=== PATIENT | male | born 1950 | race Hispanic/Latino ===

== ENCOUNTER → 2019-03-18 | Outpatient (CLI) | payer OTHER ==
[~2019-03-18] MED LIST: BISA-72 PO; CHLO4TAB32 PO; CLON1TAB PO; DUTA.5 PO; ONDA4TAB9 PO; POLY500P30 MC; PROP10TA10 PO; ROSU5TAB PO; SAW160CA3 PO; SERT50TA PO; XALA2.5OS
== END | disposition home or self-care (01) ==
LOC: RAH 10:05
PROVIDERS: ATTEND Internal Medicine Gastroenterology
DX: K76.0 Fatty (change of) liver, not elsewhere classified (principal); Z90.49 Acquired absence of other specified parts of digestive tract
CPT/HCPCS: 76700

== ENCOUNTER 2020-02-28 12:46 | Emergency (ER) | payer OTHER ==
[~2020-02-28 12:46] MED LIST changes: +ONDA-104 PO; -ONDA4TAB9 PO
[2020-02-28 13:20] LABS: BASOPHILS % (AUTO) 0.3 % (0.0-5.0); EOSINOPHILS % (AUTO) 1.7 % (0.0-8.0); HEMATOCRIT 40.9 % (42-54); LYMPHOCYTES % (AUTO) 17.3 % (21.0-51.0); MEAN CORPUSCULAR HEMOGLOBIN 29.7 pg (27.0-33.0); MEAN CORPUSCULAR HGB CONC 31.8 g/dL (32.0-36.0); MEAN CORPUSCULAR VOLUME 93.4 fL (79-99); MONOCYTES % (AUTO) 6.7 % (3.0-13.0); NEUTROPHILS % (AUTO) 73.7 % (40.0-77.0); PLATELET COUNT (AUTO) 182 K/uL (130-400); RED BLOOD CELL COUNT(AUTO) 4.38 MIL/uL (4.50-6.20); WHITE BLOOD COUNT (AUTO) 6.5 K/uL (4.8-10.8)
[2020-02-28 13:34] LABS: POTASSIUM 3.8 mmol/L (3.5-5.1)
[2020-02-28 13:35] LABS: INR 0.93 (0.85-1.15); PARTIAL THROMBOPLASTIN TIME 27.3 SEC (26.3-35.5); PROTHROMBIN TIME 10.1 SEC (9.6-11.6)
[2020-02-28 13:39] LABS: ALBUMIN 3.7 g/dL (3.5-5.0); BILIRUBIN,TOTAL 0.4 mg/dL (0.2-1.0); TOTAL PROTEIN, SERUM 6.9 g/dL (6.0-8.3)
== END 2020-02-28 16:41 | disposition home or self-care (01) ==
LOC: EDH 12:46
DX: R00.2 Palpitations (principal); F41.9 Anxiety disorder, unspecified; F32.9 Major depressive disorder, single episode, unspecified; Z88.0 Allergy status to penicillin; Z88.6 Allergy status to analgesic agent
CPT/HCPCS: 36415; 71045; 80053; 82550; 84484; 85025; 85378; 85610; 85730; 93005

== ENCOUNTER 2022-03-08 05:37 | Day surgery (SDC) | payer OTHER, MEDICARE ==
[2022-03-04 15:26] LABS: BASOPHILS % (AUTO) 0.6 % (0.0-5.0); HEMATOCRIT 41.6 % (42-54); LYMPHOCYTES % (AUTO) 19.5 % (21.0-51.0); MEAN CORPUSCULAR HEMOGLOBIN 30.3 pg (27.0-33.0); MEAN CORPUSCULAR HGB CONC 31.7 g/dL (32.0-36.0); MEAN CORPUSCULAR VOLUME 95.6 fL (79-99); MONOCYTES % (AUTO) 8.2 % (3.0-13.0); NEUTROPHILS % (AUTO) 70.4 % (40.0-77.0); PLATELET COUNT (AUTO) 223 K/uL (130-400); RED BLOOD CELL COUNT(AUTO) 4.35 MIL/uL (4.50-6.20); RED CELL DISTRIBUTION WIDTH 13.1 % (11.0-15.5); WHITE BLOOD COUNT (AUTO) 8.7 K/uL (4.8-10.8)
[2022-03-04 15:28] LABS: APPEARANCE,URINE Clear (CLEAR); BILIRUBIN,URINE Negative (NEGATIVE); COLOR,URINE Yellow (YELLOW); GLUCOSE, URINE (UA) Negative (NEGATIVE); KETONES,URINE Negative (NEGATIVE); LEUKOCYTE ESTERASE ,URINE Negative (NEGATIVE); NITRATE,URINE Negative (NEGATIVE); OCCULT BLOOD,URINE Negative (NEGATIVE); PH,URINE 5.5 (5.0-8.0); PROTEIN,URINE Negative (NEGATIVE)
[2022-03-04 15:36] LABS: PROTHROMBIN TIME 10.9 SEC (9.6-11.6)
[2022-03-04 15:37] LABS: CREATININE 0.8 mg/dL (0.5-1.5); PARTIAL THROMBOPLASTIN TIME 26.2 SEC (26.3-35.5); POTASSIUM 3.9 mmol/L (3.5-5.1)
[2022-03-04 15:48] LABS: B-TYPE NATRIURETIC PEPTIDE 8 pg/mL (0-100)
[2022-03-07 11:30] VITALS: BP 127/61
[2022-03-08] VITALS (10 sets, daily range): BP systolic 116–146; BP diastolic 57–73
[~2022-03-08] VITALS: Ht 180.3 cm; Wt 94.7 kg
[~2022-03-08 05:37] MED LIST changes: +ACET-66 PO; -CHLO4TAB32 PO; +FLUT15.845 NS; +GUAI600T50 PO; +METF-444 PO; +OMEP40CA21 PO; -POLY500P30 MC; +POLY500P30 PO; -ROSU5TAB PO; -SAW160CA3 PO; +TAMS-1 PO
[2022-03-08] MEDS ORDERED: HEPARIN 10,000 UNIT/10ML (1,000 UNIT/ML) VIAL ONE (07:11)
[2022-03-08] MEDS ORDERED: NITROGLYCERIN 50MG VIAL ONE (07:11)
[2022-03-08] MEDS ORDERED: LIDOCAINE HCL 400MG/20ML VIAL ONE (07:11)
[2022-03-08] MEDS ORDERED: FENTANYL CITRATE PF 50 MCG/1 ML 2ML VIAL ONE (07:11)
[2022-03-08] MEDS ORDERED: MIDAZOLAM HCL 1 MG/ML 2ML VIAL ONE (07:11)
[2022-03-08] MEDS ORDERED: BIVALIRUDIN 250 MG/VIAL IV ONE (07:11)
[2022-03-08] MEDS ORDERED: IOHEXOL-350 50ML VIAL IV ONE (07:14)
[2022-03-08] MEDS ORDERED: IOHEXOL 350 MG/ML 100ML INFUS..BTL IV ONE (07:14)
[2022-03-08] MEDS ORDERED: 0.9%NACL 1000ML 1,000 ML IV SCH ×2 (08:00→08:30)
[2022-03-08] MEDS ORDERED: GLUCAGON 1MG KIT 1 MG ML IM PRN (08:30)
[2022-03-08] MEDS ORDERED: METOPROLOL TARTRATE 1 MG/ML 5ML VIAL IV PRN (08:30)
[2022-03-08] MEDS ORDERED: DEXTROSE 50%-WATER 50 ML DISP.SYRIN IV PRN (08:30)
[2022-03-08] MEDS ORDERED: NITROGLYCERIN 0.4 MG SL TAB SL PRN (08:30)
== END 2022-03-08 13:30 | disposition home or self-care (01) ==
LOC: DAH 05:37
PROVIDERS: ATTEND Internal Medicine Cardiovascular Disease
DX: R06.02 Shortness of breath (principal); R09.02 Hypoxemia; I20.8 Other forms of angina pectoris; I11.0 Hypertensive heart disease with heart failure; I50.32 Chronic diastolic (congestive) heart failure; E11.9 Type 2 diabetes mellitus without complications; E78.5 Hyperlipidemia, unspecified; E66.3 Overweight; K21.9 Gastro-esophageal reflux disease without esophagitis; N40.0 Benign prostatic hyperplasia without lower urinary tract symptoms; I48.0 Paroxysmal atrial fibrillation; Z87.891 Personal history of nicotine dependence; Z82.49 Family history of ischemic heart disease and other diseases of the circulatory system; Z88.8 Allergy status to other drugs, medicaments and biological substances; Z88.0 Allergy status to penicillin; Z68.28 Body mass index [BMI] 28.0-28.9, adult; Z79.82 Long term (current) use of aspirin; Z98.890 Other specified postprocedural states; Z79.899 Other long term (current) drug therapy; Z79.01 Long term (current) use of anticoagulants
CPT/HCPCS: 36415; 80048; 81003; 82948 ×2; 83880; 85025; 85610; 85730; 93460; A4215; A4216; A4221; A4222; A4223 ×3; A4606; A4663; C1760; C1894 ×3; J1644; J2250; J3490 ×2; Q9967 ×2; 99156; 99157; J0583; J3010

== ENCOUNTER → 2022-03-25 | Outpatient (CLI) | payer OTHER, MEDICARE | END | disposition home or self-care (01) | LOC: RAH 12:45 | PROVIDERS: ATTEND Internal Medicine Cardiovascular Disease | DX: M79.81 Nontraumatic hematoma of soft tissue (principal); M79.89 Other specified soft tissue disorders; I72.9 Aneurysm of unspecified site; E85.9 Amyloidosis, unspecified | CPT/HCPCS: 76882 ==

== ENCOUNTER 2022-04-15 22:11 | Emergency (ER) | payer OTHER, MEDICARE ==
[~2022-04-15] VITALS: Ht 182.9 cm; Wt 95.3 kg
[2022-04-15] MEDS ORDERED: ADENOSINE 6MG VIAL IV ONE ×2 (22:30)
[2022-04-15 22:33] LABS: BASOPHILS % (AUTO) 0.3 % (0.0-5.0); EOSINOPHILS % (AUTO) 1.5 % (0.0-8.0); HEMATOCRIT 45.3 % (42-54); LYMPHOCYTES % (AUTO) 18.5 % (21.0-51.0); MEAN CORPUSCULAR HEMOGLOBIN 30.3 pg (27.0-33.0); MEAN CORPUSCULAR VOLUME 94.6 fL (79-99); MONOCYTES % (AUTO) 6.8 % (3.0-13.0); NEUTROPHILS % (AUTO) 72.6 % (40.0-77.0); PLATELET COUNT (AUTO) 227 K/uL (130-400); RED BLOOD CELL COUNT(AUTO) 4.79 MIL/uL (4.50-6.20); RED CELL DISTRIBUTION WIDTH 13.1 % (11.0-15.5); WHITE BLOOD COUNT (AUTO) 8.9 K/uL (4.8-10.8)
[2022-04-15 22:45] LABS: CREATININE 1.1 mg/dL (0.5-1.5); POTASSIUM 4.1 mmol/L (3.5-5.1)
[2022-04-15 22:51] LABS: ALBUMIN 4.2 g/dL (3.5-5.0); BILIRUBIN,TOTAL 0.4 mg/dL (0.2-1.0); TOTAL PROTEIN, SERUM 8.1 g/dL (6.0-8.3)
[2022-04-15 23:30] VITALS: BP 124/79
== END 2022-04-15 23:53 | disposition home or self-care (01) ==
LOC: EDH 22:11
DX: I47.1 Supraventricular tachycardia (principal); E11.9 Type 2 diabetes mellitus without complications; F41.9 Anxiety disorder, unspecified; M19.90 Unspecified osteoarthritis, unspecified site; Z88.0 Allergy status to penicillin; Z88.1 Allergy status to other antibiotic agents; Z88.5 Allergy status to narcotic agent; Z88.8 Allergy status to other drugs, medicaments and biological substances; Z79.899 Other long term (current) drug therapy; Z90.49 Acquired absence of other specified parts of digestive tract
CPT/HCPCS: 36415; 71045; 80053; 84484; 85025; 93005 ×2; 96374; 99285; J0153

== ENCOUNTER 2022-05-10 02:11 | Emergency (ER) | payer OTHER, MEDICARE ==
[~2022-05-10] VITALS: Ht 182.9 cm; Wt 96.2 kg
[2022-05-10] MEDS ORDERED: ACETAMINOPHEN 650 MG/20.3 ML UDCUP PEG ONE (02:30)
[2022-05-10] MEDS ORDERED: ACETAMINOPHEN 650 MG/20.3 ML UDCUP ONE (02:35)
[2022-05-10 02:56] LABS: INFLUENZA TYPE A NEGATIVE FOR TYPE A (NEG); INFLUENZA TYPE B NEGATIVE FOR TYPE B (NEG)
[2022-05-10] MEDS ORDERED: NYST5ORA7 PO (03:11)
[2022-05-10 04:11] VITALS: BP 118/60
== END 2022-05-10 04:17 | disposition home or self-care (01) ==
LOC: EDH 02:11
DX: U07.1 COVID-19 (principal); B37.9 Candidiasis, unspecified; F41.9 Anxiety disorder, unspecified; J44.9 Chronic obstructive pulmonary disease, unspecified; F32.A Depression, unspecified; E11.9 Type 2 diabetes mellitus without complications; K21.9 Gastro-esophageal reflux disease without esophagitis; E78.00 Pure hypercholesterolemia, unspecified; Z88.0 Allergy status to penicillin; Z88.8 Allergy status to other drugs, medicaments and biological substances; Z88.5 Allergy status to narcotic agent; Z88.1 Allergy status to other antibiotic agents; Z79.84 Long term (current) use of oral hypoglycemic drugs; Z79.899 Other long term (current) drug therapy; Z90.89 Acquired absence of other organs; Z90.49 Acquired absence of other specified parts of digestive tract
CPT/HCPCS: 99283; 87635; 87880; 87804 ×2; C9803

== ENCOUNTER → 2022-10-10 | Outpatient (CLI) | payer OTHER, MEDICARE ==
[~2022-10-10] MED LIST changes: +NYST5ORA7 PO
== END | disposition home or self-care (01) ==
LOC: RAH 08:09
PROVIDERS: ATTEND Internal Medicine Cardiovascular Disease
DX: R16.2 Hepatomegaly with splenomegaly, not elsewhere classified (principal)
CPT/HCPCS: 76700

== ENCOUNTER 2022-11-23 17:55 | Emergency (ER) | payer OTHER, MEDICARE ==
[~2022-11-23] VITALS: Ht 182.9 cm; Wt 95.3 kg
[2022-11-23] MEDS ORDERED: 0.9%NACL 1000ML 1,000 ML IV SCH (18:30)
[2022-11-23] MEDS ORDERED: ADENOSINE 6MG VIAL IV ONE ×2 (18:43→19:00)
[2022-11-23 18:45] LABS: BASOPHILS % (AUTO) 0.7 % (0.0-5.0); EOSINOPHILS % (AUTO) 1.9 % (0.0-8.0); HEMATOCRIT 39.7 % (42-54); LYMPHOCYTES % (AUTO) 15.8 % (21.0-51.0); MEAN CORPUSCULAR HEMOGLOBIN 30.3 pg (27.0-33.0); MEAN CORPUSCULAR HGB CONC 32.5 g/dL (32.0-36.0); MEAN CORPUSCULAR VOLUME 93.2 fL (79-99); MONOCYTES % (AUTO) 6.7 % (3.0-13.0); NEUTROPHILS % (AUTO) 74.4 % (40.0-77.0); PLATELET COUNT (AUTO) 243 K/uL (130-400); RED BLOOD CELL COUNT(AUTO) 4.26 MIL/uL (4.50-6.20); RED CELL DISTRIBUTION WIDTH 13.6 % (11.0-15.5); WHITE BLOOD COUNT (AUTO) 10.1 K/uL (4.8-10.8)
[2022-11-23 18:57] LABS: CREATININE 0.9 mg/dL (0.5-1.5); POTASSIUM 4.7 mmol/L (3.5-5.1)
[2022-11-23 19:02] LABS: ALBUMIN 3.7 g/dL (3.5-5.0); TOTAL PROTEIN, SERUM 7.3 g/dL (6.0-8.3)
[2022-11-23 20:47] VITALS: BP 122/70
== END 2022-11-23 20:59 | disposition home or self-care (01) ==
LOC: EDH 17:55
DX: I47.1 Supraventricular tachycardia (principal); E11.9 Type 2 diabetes mellitus without complications; E78.00 Pure hypercholesterolemia, unspecified; F41.9 Anxiety disorder, unspecified; I48.91 Unspecified atrial fibrillation; K21.9 Gastro-esophageal reflux disease without esophagitis; F32.9 Major depressive disorder, single episode, unspecified; I11.9 Hypertensive heart disease without heart failure; J44.9 Chronic obstructive pulmonary disease, unspecified; Z79.899 Other long term (current) drug therapy; Z86.79 Personal history of other diseases of the circulatory system; Z88.0 Allergy status to penicillin; Z88.1 Allergy status to other antibiotic agents; Z88.5 Allergy status to narcotic agent; Z88.8 Allergy status to other drugs, medicaments and biological substances; Z90.49 Acquired absence of other specified parts of digestive tract
CPT/HCPCS: 84484; 80053; 85025; 36415; 71045; 96374; 99291; 96361; 93005 ×2; J0153; J7030

== ENCOUNTER → 2022-11-25 | Outpatient (CLI) | payer OTHER, MEDICARE ==
[2022-11-25 15:28] LABS: INR 0.94 (0.85-1.15); PROTHROMBIN TIME 10.3 SEC (9.6-11.6)
[2022-11-25 15:30] LABS: PARTIAL THROMBOPLASTIN TIME 28.5 SEC (26.3-35.5)
[2022-11-25 15:37] LABS: ALBUMIN 3.7 g/dL (3.5-5.0); CREATININE 0.8 mg/dL (0.5-1.5); POTASSIUM 4.2 mmol/L (3.5-5.1); TOTAL PROTEIN, SERUM 7.5 g/dL (6.0-8.3)
== END | disposition home or self-care (01) ==
LOC: LAB 13:16
PROVIDERS: ATTEND Internal Medicine Cardiovascular Disease
DX: E78.5 Hyperlipidemia, unspecified (principal); R06.02 Shortness of breath
CPT/HCPCS: 36415; 80053; 84156; 84166; 85610; 85730; 86325

== ENCOUNTER → 2022-12-23 | Outpatient (CLI) | payer OTHER, MEDICARE | END | disposition home or self-care (01) | LOC: RAH 10:00 | DX: M47.816 Spondylosis without myelopathy or radiculopathy, lumbar region (principal); M47.812 Spondylosis without myelopathy or radiculopathy, cervical region; M25.78 Osteophyte, vertebrae; M48.02 Spinal stenosis, cervical region | CPT/HCPCS: 72040; 72100 ==

== ENCOUNTER 2023-01-11 01:08 | Emergency (ER) | payer OTHER, MEDICARE ==
[~2023-01-11] VITALS: Ht 182.9 cm; Wt 95.3 kg
[2023-01-11] MEDS ORDERED: ADENOSINE 6MG VIAL IV ONE (01:13)
[2023-01-11 01:26] LABS: BASOPHILS % (AUTO) 0.5 % (0.0-5.0); EOSINOPHILS % (AUTO) 1.4 % (0.0-8.0); HEMATOCRIT 43.2 % (42-54); MEAN CORPUSCULAR HEMOGLOBIN 30.4 pg (27.0-33.0); MEAN CORPUSCULAR HGB CONC 31.7 g/dL (32.0-36.0); MONOCYTES % (AUTO) 5.7 % (3.0-13.0); NEUTROPHILS % (AUTO) 68.9 % (40.0-77.0); PLATELET COUNT (AUTO) 226 K/uL (130-400); RED CELL DISTRIBUTION WIDTH 13.4 % (11.0-15.5); WHITE BLOOD COUNT (AUTO) 8.8 K/uL (4.8-10.8)
[2023-01-11 01:36] LABS: CREATININE 1.1 mg/dL (0.5-1.5); POTASSIUM 4.4 mmol/L (3.5-5.1)
[2023-01-11 01:41] LABS: ALBUMIN 4.3 g/dL (3.5-5.0); MAGNESIUM 2.3 mg/dL (1.80-2.40); TOTAL PROTEIN, SERUM 8.2 g/dL (6.0-8.3)
[2023-01-11 02:17] LABS: B-TYPE NATRIURETIC PEPTIDE 19 pg/mL (0-100)
[2023-01-11 02:32] VITALS: BP 132/78
[2023-01-11 02:57] LABS: APPEARANCE,URINE CLEAR (CLEAR); BILIRUBIN,URINE NEGATIVE (NEGATIVE); COLOR,URINE COLORLESS (YELLOW); GLUCOSE, URINE (UA) NEGATIVE (NEGATIVE); KETONES,URINE NEGATIVE (NEGATIVE); LEUKOCYTE ESTERASE ,URINE NEGATIVE Leu/uL (NEGATIVE); NITRATE,URINE NEGATIVE (NEGATIVE); OCCULT BLOOD,URINE NEGATIVE (NEGATIVE); PH,URINE 7.5 (5.0-8.0); PROTEIN,URINE NEGATIVE (NEGATIVE); UROBILINOGEN,URINE 0.2 mg/dL (0.2-1.0)
== END 2023-01-11 03:10 | disposition home or self-care (01) ==
LOC: EDH 01:08
DX: I47.1 Supraventricular tachycardia (principal); E11.9 Type 2 diabetes mellitus without complications; I10 Essential (primary) hypertension; Z79.899 Other long term (current) drug therapy; Z88.0 Allergy status to penicillin; Z88.1 Allergy status to other antibiotic agents; Z88.5 Allergy status to narcotic agent; Z88.8 Allergy status to other drugs, medicaments and biological substances; Z90.49 Acquired absence of other specified parts of digestive tract
CPT/HCPCS: 99291; 96374; 83735; 84484; 80053; 83880; 85025; 81003; 36415; 71045; 93005; J0153

== ENCOUNTER → 2023-04-27 | Outpatient (CLI) | payer OTHER, MEDICARE ==
[2023-04-27 12:55] LABS: CREATININE 0.8 mg/dL (0.5-1.5); MAGNESIUM 2.1 mg/dL (1.80-2.40)
== END | disposition home or self-care (01) ==
LOC: LAB 10:36
PROVIDERS: ATTEND Internal Medicine Cardiovascular Disease
DX: I10 Essential (primary) hypertension (principal); E78.5 Hyperlipidemia, unspecified
CPT/HCPCS: 36415; 80048; 83735; 83880

== ENCOUNTER → 2023-05-29 | Outpatient (CLI) | payer OTHER, MEDICARE | END | disposition home or self-care (01) | LOC: SHCH 12:36 | PROVIDERS: ATTEND Internal Medicine Cardiovascular Disease | DX: I48.0 Paroxysmal atrial fibrillation (principal) | CPT/HCPCS: 93306 ==

== ENCOUNTER → 2023-06-01 | Outpatient (CLI) | payer OTHER, MEDICARE ==
[2023-06-01 16:36] LABS: CREATININE 0.9 mg/dL (0.5-1.5); POTASSIUM 3.9 mmol/L (3.5-5.1)
== END | disposition home or self-care (01) ==
LOC: LAB 12:29
PROVIDERS: ATTEND Internal Medicine Cardiovascular Disease
DX: I71.40 Abdominal aortic aneurysm, without rupture, unspecified (principal)
CPT/HCPCS: 36415; 80048

== ENCOUNTER → 2023-06-15 | Outpatient (CLI) | payer OTHER, MEDICARE ==
[~2023-06-15] MED LIST changes: +IOHEXOL 350 MG/ML 100ML INFUS..BTL IV ONE
== END | disposition home or self-care (01) ==
LOC: RAH 09:38
PROVIDERS: ATTEND Internal Medicine Cardiovascular Disease
DX: I71.40 Abdominal aortic aneurysm, without rupture, unspecified (principal); K57.30 Diverticulosis of large intestine without perforation or abscess without bleeding; Z90.49 Acquired absence of other specified parts of digestive tract
CPT/HCPCS: 74174; 71275; Q9967

== ENCOUNTER → 2023-08-09 | Outpatient (CLI) | payer OTHER, MEDICARE ==
[~2023-08-09] MED LIST changes: -IOHEXOL 350 MG/ML 100ML INFUS..BTL IV ONE
== END | disposition home or self-care (01) ==
LOC: RAH 12:54
PROVIDERS: ATTEND Internal Medicine
DX: S22.009S Unspecified fracture of unspecified thoracic vertebra, sequela (principal); M46.92 Unspecified inflammatory spondylopathy, cervical region; M47.814 Spondylosis without myelopathy or radiculopathy, thoracic region; G96.191 Perineural cyst; M51.34 Other intervertebral disc degeneration, thoracic region; M47.816 Spondylosis without myelopathy or radiculopathy, lumbar region; M48.061 Spinal stenosis, lumbar region without neurogenic claudication; M47.812 Spondylosis without myelopathy or radiculopathy, cervical region; M50.323 Other cervical disc degeneration at C6-C7 level; M48.02 Spinal stenosis, cervical region
CPT/HCPCS: 72141; 72146; 72148

== ENCOUNTER → 2024-01-06 | Outpatient (CLI) | payer OTHER, MEDICARE ==
[~2024-01-06] MED LIST changes: -DUTA.5 PO; +[UNRECOGNIZED DRUG - CODE] PO
== END | disposition home or self-care (01) ==
LOC: SHCH 14:37
PROVIDERS: ATTEND Internal Medicine Cardiovascular Disease
DX: R06.00 Dyspnea, unspecified (principal)
CPT/HCPCS: 93306

== ENCOUNTER 2024-01-20 07:00 | Emergency (ER) | payer OTHER, MEDICARE ==
[~2024-01-20] VITALS: Ht 182.9 cm; Wt 95.3 kg
[2024-01-20 07:30] LABS: BASOPHILS # (AUTO) 0.05 K/uL (0.00-0.20); BASOPHILS % (AUTO) 0.7 % (0.0-5.0); EOSINOPHILS # (AUTO) 0.13 K/uL (0.00-0.70); EOSINOPHILS % (AUTO) 1.9 % (0.0-8.0); HEMATOCRIT 40.7 % (42-54); IMMATURE GRANULOCYTE ABSOLUTE 0.01 K/uL (0-1); LYMPHOCYTES # (AUTO) 2.4 K/uL (1.0-4.8); LYMPHOCYTES % (AUTO) 34.4 % (21.0-51.0); MEAN CORPUSCULAR HEMOGLOBIN 31.5 pg (27.0-33.0); MEAN CORPUSCULAR HGB CONC 32.4 g/dL (32.0-36.0); MEAN CORPUSCULAR VOLUME 97.1 fL (79-99); MONOCYTES # (AUTO) 0.5 K/uL (0.1-1.0); MONOCYTES % (AUTO) 6.8 % (3.0-13.0); NEUTROPHILS # (AUTO) 3.9 K/uL (1.8-7.7); NEUTROPHILS % (AUTO) 56.1 % (40.0-77.0); PLATELET COUNT (AUTO) 234 K/uL (130-400); RED BLOOD CELL COUNT(AUTO) 4.19 MIL/uL (4.50-6.20); RED CELL DISTRIBUTION WIDTH 13.6 % (11.0-15.5)
[2024-01-20] MEDS: 0.9%NACL 1000ML 1,000 ML IV SCH (07:30)
[2024-01-20] MEDS: ADENOSINE 6MG VIAL IV ONE ×2 (07:36→09:46)
[2024-01-20 07:39] LABS: INR <= 0.93 (0.85-1.15); PROTHROMBIN TIME 10.3 SEC (9.6-11.6)
[2024-01-20 07:40] LABS: PARTIAL THROMBOPLASTIN TIME 27.3 SEC (26.3-35.5)
[2024-01-20 07:58] LABS: B-TYPE NATRIURETIC PEPTIDE 28 pg/mL (0-100)
[2024-01-20 08:07] LABS: ALBUMIN 3.5 g/dL (3.5-5.0); BILIRUBIN,TOTAL 0.5 mg/dL (0.2-1.0); CREATININE 0.9 mg/dL (0.5-1.3); MAGNESIUM 1.9 mg/dL (1.80-2.40); POTASSIUM 3.8 mmol/L (3.5-5.1); TOTAL PROTEIN, SERUM 7.8 g/dL (6.0-8.3)
[2024-01-20] MEDS: 0.9% NACL 500ML IV.SOLN 500 ML IV ONE (08:35)
[2024-01-20] MEDS: METOPROLOL TARTRATE 1 MG/ML 5ML VIAL IV ONE (08:35)
[2024-01-20] MEDS: METOPROLOL SUCCINATE 25 MG TAB.SR.24H PO ONE (11:26)
[2024-01-20 12:00] VITALS: BP 109/66; PULSE 76; RESP 19; O2SAT 97
== END 2024-01-20 13:00 | disposition home or self-care (01) ==
LOC: EDH 07:00
DX: I47.10 Supraventricular tachycardia, unspecified (principal); Z79.899 Other long term (current) drug therapy; Z88.0 Allergy status to penicillin; Z88.1 Allergy status to other antibiotic agents; Z88.5 Allergy status to narcotic agent; Z88.8 Allergy status to other drugs, medicaments and biological substances
CPT/HCPCS: 99285; 96374; 71045; 96375; 82550; 83735; 84484; 80053; 83880; 85025; 85610; 85730; 36415; 96376; J0153 ×2; J3490; J7030

== ENCOUNTER → 2024-02-21 | Outpatient (CLI) | payer OTHER, MEDICARE ==
[~2024-02-21] MED LIST changes: -CLON1TAB PO; +CLON1TAB2 PO; +DUTA.5 PO; -[UNRECOGNIZED DRUG - CODE] PO
== END | disposition home or self-care (01) ==
LOC: RESP 12:59
PROVIDERS: ATTEND Internal Medicine Cardiovascular Disease
DX: R06.00 Dyspnea, unspecified (principal); R06.02 Shortness of breath
CPT/HCPCS: 94060

== ENCOUNTER 2024-07-06 10:34 | Emergency (ER) | payer OTHER, MEDICARE ==
[~2024-07-06] VITALS: Ht 185.4 cm; Wt 93.4 kg
[2024-07-06 11:33] LABS: BASOPHILS # (AUTO) 0.03 K/uL (0.00-0.20); BASOPHILS % (AUTO) 0.5 % (0.0-5.0); EOSINOPHILS # (AUTO) 0.12 K/uL (0.00-0.70); EOSINOPHILS % (AUTO) 2.1 % (0.0-8.0); HEMATOCRIT 38.3 % (42-54); IMMATURE GRANULOCYTE ABSOLUTE 0.01 K/uL (0-1); LYMPHOCYTES % (AUTO) 17.8 % (21.0-51.0); MEAN CORPUSCULAR HEMOGLOBIN 31.4 pg (27.0-33.0); MEAN CORPUSCULAR HGB CONC 32.4 g/dL (32.0-36.0); MONOCYTES # (AUTO) 0.4 K/uL (0.1-1.0); MONOCYTES % (AUTO) 7.2 % (3.0-13.0); NEUTROPHILS # (AUTO) 4.1 K/uL (1.8-7.7); NEUTROPHILS % (AUTO) 72.2 % (40.0-77.0); PLATELET COUNT (AUTO) 205 K/uL (130-400); RED BLOOD CELL COUNT(AUTO) 3.95 MIL/uL (4.50-6.20); RED CELL DISTRIBUTION WIDTH 13.3 % (11.0-15.5); WHITE BLOOD COUNT (AUTO) 5.7 K/uL (4.8-10.8)
[2024-07-06 11:53] LABS: ALBUMIN 3.4 g/dL (3.5-5.0); BILIRUBIN,TOTAL 0.5 mg/dL (0.2-1.0); POTASSIUM 3.8 mmol/L (3.5-5.1); TOTAL PROTEIN, SERUM 7.2 g/dL (6.0-8.3)
[2024-07-06 12:52] LABS: APPEARANCE,URINE CLEAR (CLEAR); BILIRUBIN,URINE NEGATIVE (NEGATIVE); COLOR,URINE YELLOW (YELLOW); GLUCOSE, URINE (UA) NEGATIVE (NEGATIVE); KETONES,URINE NEGATIVE (NEGATIVE); LEUKOCYTE ESTERASE ,URINE NEGATIVE Leu/uL (NEGATIVE); NITRATE,URINE NEGATIVE (NEGATIVE); OCCULT BLOOD,URINE NEGATIVE (NEGATIVE); PH,URINE 5.5 (5.0-8.0); PROTEIN,URINE NEGATIVE (NEGATIVE)
[2024-07-06 13:04] LABS: ADD UA MICROSCOPIC NO
[2024-07-06 16:09] VITALS: BP 118/68; PULSE 80; RESP 18; TEMP 97.9; O2SAT 97
== END 2024-07-06 16:22 | disposition home or self-care (01) ==
LOC: EDH 10:34
DX: I47.10 Supraventricular tachycardia, unspecified (principal); E85.4 Organ-limited amyloidosis; E11.9 Type 2 diabetes mellitus without complications; Z79.899 Other long term (current) drug therapy; Z88.0 Allergy status to penicillin; Z88.1 Allergy status to other antibiotic agents; Z88.5 Allergy status to narcotic agent; Z88.8 Allergy status to other drugs, medicaments and biological substances
CPT/HCPCS: 36415; 71045; 80053; 81003; 84484; 85025; 93005

== ENCOUNTER → 2024-08-13 | Outpatient (CLI) | payer OTHER, MEDICARE | END | disposition home or self-care (01) | LOC: RAH 13:11 | PROVIDERS: ATTEND Internal Medicine Critical Care Medicine | DX: J32.0 Chronic maxillary sinusitis (principal); J34.2 Deviated nasal septum | CPT/HCPCS: 70486 ==

== ENCOUNTER → 2024-10-25 | Outpatient (CLI) | payer OTHER, MEDICARE ==
[~2024-10-25] MED LIST changes: +NYST100033 PO; -NYST5ORA7 PO
--- NOTE | 2024-10-25 15:01 | HMCIMG ---
MRI OF THE CERVICAL SPINE WITHOUT GADOLINIUM Technique: Sagittal T1 and T2 FSE, Sagittal STIR and Sagittal proton density images were completed through the cervical spine. Axial T1, T2 and proton density images were also acquired. FINDINGS: There is straightening of the spine consistent with spasm. There are spondylitic changes. No fractures or dislocations are identified. Vertebral body height and disc height is preserved at all levels. The bone marrow signal is normal for age. The spinal canal contents are preserved. The paraspinal muscles and other tissues show no significant abnormalities. Evaluation of the cervical spine by level: C1-C2: There is no spinal canal stenosis. No disc protrusions or extrusions are seen. There is no neural foraminal stenosis, impingement, or narrowing. C2-C3: There is no spinal canal stenosis. No disc protrusions or extrusions are seen. There is no neural foraminal stenosis, impingement, or narrowing. C3-C4: There is no spinal canal stenosis. No disc protrusions or extrusions are seen. There is no neural foraminal stenosis, impingement, or narrowing. C4-C5: There is a central zone disc protrusion causing spinal canal stenosis without cord compression. There is also bilateral neural foraminal narrowing and nerve root impingement. C5-C6: There is a central zone disc protrusion causing spinal canal stenosis without cord compression. There is also bilateral neural foraminal narrowing and nerve root impingement. C6-C7: There is a central zone disc protrusion causing spinal canal stenosis without cord compression. There is also bilateral neural foraminal narrowing and nerve root impingement. C7-T1: There is no spinal canal stenosis. No disc protrusions or extrusions are seen. There is no neural foraminal stenosis, impingement, or narrowing. Impression: Multilevel disc protrusions with neural foraminal narrowing and nerve root impingement. Cervical spasm.
== END | disposition home or self-care (01) ==
LOC: RAH 14:09
PROVIDERS: ATTEND Clinical Nurse Specialist Family Health
DX: M47.812 Spondylosis without myelopathy or radiculopathy, cervical region (principal); M48.02 Spinal stenosis, cervical region; M46.92 Unspecified inflammatory spondylopathy, cervical region; M47.814 Spondylosis without myelopathy or radiculopathy, thoracic region; M54.50 Low back pain, unspecified
CPT/HCPCS: 72141

== ENCOUNTER 2024-10-27 09:09 | Observation (INO) | payer OTHER, MEDICARE ==
[~2024-10-27] VITALS: Ht 180.3 cm; Wt 90.2 kg
--- NOTE | 2024-10-27 09:16 | NUR ---
PT JUST NOW PLACED IN MY ED BED 19 BY [facility]
[2024-10-27 09:36] LABS: BASOPHILS # (AUTO) 0.03 K/uL (0.00-0.20); BASOPHILS % (AUTO) 0.4 % (0.0-5.0); EOSINOPHILS # (AUTO) 0.05 K/uL (0.00-0.70); EOSINOPHILS % (AUTO) 0.7 % (0.0-8.0); HEMATOCRIT 36.8 % (42-54); IMMATURE GRANULOCYTE ABSOLUTE 0.02 K/uL (0-1); LYMPHOCYTES % (AUTO) 15.4 % (21.0-51.0); MEAN CORPUSCULAR HGB CONC 32.6 g/dL (32.0-36.0); MEAN CORPUSCULAR VOLUME 98.1 fL (79-99); MONOCYTES # (AUTO) 0.4 K/uL (0.1-1.0); MONOCYTES % (AUTO) 5.8 % (3.0-13.0); NEUTROPHILS # (AUTO) 5.2 K/uL (1.8-7.7); NEUTROPHILS % (AUTO) 77.4 % (40.0-77.0); PLATELET COUNT (AUTO) 149 K/uL (130-400); RED BLOOD CELL COUNT(AUTO) 3.75 MIL/uL (4.50-6.20); RED CELL DISTRIBUTION WIDTH 13.7 % (11.0-15.5); WHITE BLOOD COUNT (AUTO) 6.7 K/uL (4.8-10.8)
[2024-10-27 10:00] LABS: INR 0.95 (0.85-1.15); PROTHROMBIN TIME 10.7 SEC (9.6-11.6)
[2024-10-27 10:01] LABS: PARTIAL THROMBOPLASTIN TIME 27.6 SEC (26.3-35.5)
[2024-10-27 10:05] LABS: POTASSIUM 3.9 mmol/L (3.5-5.1)
--- NOTE | 2024-10-27 10:29 | HMCIMG ---
INDICATION: Shortness of breath TECHNIQUE: CHEST 1VW COMPARISON: 07/06/2024 FINDINGS/IMPRESSION: Prominent bilateral interstitial markings which may represent bronchitis or vascular congestion in the proper clinical setting. Cardiac silhouette is within normal limits. Mild degenerative changes of the spine. The visualized upper abdomen appears unremarkable.
[2024-10-27 10:57] LABS: B-TYPE NATRIURETIC PEPTIDE 46 pg/mL (0-100)
--- NOTE | 2024-10-27 11:51 | NUR ---
PT OOB TO BR. WILL COLLECT URINE SAMPLE. PENDING 2ND TROP LEVEL
--- NOTE | 2024-10-27 12:00 | NUR ---
PER PT, HE DID BECOME A LITTLE DIZZY INITIALLY WHEN HE GOT OOB TO WALK TO THE BATHROOM. HE DOES HAVE HOSPITAL NON SLIP SOCKS ON. UPON RETURNING, HE STATED HE WAS JUST FINE
--- NOTE | 2024-10-27 13:37 | NUR ---
NO PENDING DISPOSITION
--- NOTE | 2024-10-27 13:45 | ERN ---
General Chief Complaint: Palpitations Stated Complaint: PALPITATIONS Time Seen by MD: 09:16 History of Present Illness Initial Comments 74-year-old male came in for palpitation. As per patient patient has a history of cardiac amyloidosis in 12nd two SVT and had a recent episode three weeks ago. Patient is a was denies chest pain shortness for breath. Patient has no other concerns Allergies: Coded Allergies: Penicillins (Verified Allergy, Unknown, 03/02/14) albuterol (Unverified Allergy, Unknown, 07/06/21) cefdinir (Unverified Allergy, Unknown, 07/06/21) codeine (Unverified Allergy, Unknown, 07/06/21) lisinopril (Unverified Allergy, Unknown, 07/06/21) tramadol (Unverified Allergy, Unknown, 07/06/21) Home Meds Active Scripts Nystatin (Nystatin) 100,000 Unit/1 Ml Oral.susp, 572824 UNIT PO TID, #7 ML Prov:ROHAN GONZALES MD 05/10/22 Reported Medications Metformin HCl (Metformin HCl) 500 Mg Tablet, 500 MG PO HS, TAB 03/07/22 Fluticasone Propionate (Fluticasone Propionate) 15.8 Ml [place].susp, 1 SPRAY NS DAILY 03/07/22 Acetaminophen (Acetaminophen) 500 Mg Tablet, 1000 MG PO DAILY, TAB 03/07/22 Guaifenesin (Mucinex) 600 Mg Tablet.er, 600 MG PO HS, TAB 03/07/22 Tamsulosin HCl (Flomax) 0.4 Mg Cap.er.24h, 0.4 MG PO HS, CAPSULE.DR 03/07/22 Omeprazole (Omeprazole) 40 Mg Capsule.dr, 40 MG PO DAILY, CAP 03/07/22 Sertraline HCl (Zoloft) 50 Mg Tablet, 50 MG PO BID, TAB 01/30/17 Clonazepam (Klonopin) 1 Mg Tablet, 1 MG PO TID, TAB 01/30/17 Latanoprost (Xalatan 0.005% Ophth Soln) 20 Drop/Ml Opsol, 1 DROP .AD HS, DROP 01/30/17 Bisacodyl (Dulcolax) 5 Mg Tablet.dr, 5 MG PO HS, TAB 01/30/17 Ondansetron HCl (Ondansetron HCl) 4 Mg Tablet, 4 MG PO AD PRN for NAUSEA, TAB 01/30/17 Polyethylene Glycol 8000 (Polyethylene Glycol) 500 Gm Powder, 17 GM PO DAILY PRN for CONSTIPATION, APPL 01/30/17 Propranolol HCl (Propranolol HCl) 10 Mg Tablet, 5 MG PO DAILY PRN for IF SBP GREATER THAN 140, TAB 01/30/17 Dutasteride (Avodart) 0.5 Mg Cap, 0.5 MG PO HS, CAP 01/30/17 Past Medical History Past Medical History: Diabetes-Type II, High Cholesterol, Heart Disease, Hype rtension, Other Medical History Other: CARDIAC AMLODOYSIS Past Surgical History: Appendectomy, Cholecystectomy, Other Surgical History Other: PINS IN ELBOW Social History Social History: Negative, Lives with family, Other ROS Dictation CONSTITUTIONAL: Negative except for HPI HEAD/FACE: Negative except for HPI EENT: Negative except for HPI RESPIRATORY: Negative except for HPI GASTROINTESTINAL/ABDOMINAL: Negative except for HPI GENITOURINARY: Negative except for HPI MUSCULOSKELETAL: Negative except for HPI INTEGUMENTARY: Negative except for HPI NEUROLOGICAL/PSYCH: Negative except for HPI HEMATOLOGIC/LYMPHATIC: Negative except for HPI All Systems Negative, Except as noted above. 13 point review of systems assessed and all negative except for above. Physical Exam Physical Exam Dictation Vital Signs reviewed General Appearance: Alert, oriented x 3, no acute distress, well developed, nourished. Head and Face: non-traumatic. Eyes: PERRL, pink conjunctivas, eyelid no trauma, anterior chamber with arcus senilis. Ears: Pinnas intact and no signs of trauma or erythema ear canals clear and no discharge TM no erythema Nose: No discharge, no bleeding. Oropharynx: Mouth normal, tongue pink, pharynx clear,no erythema, tonsils no exudates, no abscesses noted, mucous membrane moist Neck: Supple, non-tender, no thyromegaly, no masses, no JVD, no bruits Breast:Deferred Chest:No tenderness, no crepitus, no paradoxical movement, no retractions Lungs:Clear, well-ventilated, symmetric, no rales, no wheezing, no rhonchi, no stridor, good breath sounds bilaterally Heart: Regular rate, regular rhythm, no murmur, no gallops Vascular: no peripheral edema, Abdomen: Soft, positive bowel sounds, nondistended, no guarding, nontender, no rebound, no masses no hepatomegaly, no splenomegaly, no Pete's sign, no hernias. Rectal: Deferred Genital: Deferred Neurological: Normal speech, motor function intact, sensory function intact Musculoskeletal: Neck nontender, full range of motion, back nontender, full range of motion, Extremities: nontender, full range of motion Skin: Color pink, dry, no turgor, no rash, no lacerations, no abrasions, no contusions. Lymphatic: Deferred Results Laboratory and Microbiology Lab and Micro Result Laboratory Tests Test 10/27/24 09:30 10/27/24 12:07 White Blood Count 6.7 K/uL (4.8-10.8) Red Blood Count 3.75 MIL/uL (4.50-6.20) L Hemoglobin 12.0 g/dL (14.0-18.0) L Hematocrit 36.8 % (42-54) L Mean Corpuscular Volume 98.1 fL (79-99) Mean Corpuscular Hemoglobin 32.0 pg (27.0-33.0) Mean Corpuscular Hemoglobin Concent 32.6 g/dL (32.0-36.0) Red Cell Distribution Width 13.7 % (11.0-15.5) Platelet Count 149 K/uL (130-400) Mean Platelet Volume 9.0 fL (7.5-10.5) Immature Granulocyte % (Auto) 0.3 % (0-1) Neutrophils (%) (Auto) 77.4 % (40.0-77.0) H Lymphocytes (%) (Auto) 15.4 % (21.0-51.0) L Monocytes (%) (Auto) 5.8 % (3.0-13.0) Eosinophils (%) (Auto) 0.7 % (0.0-8.0) Basophils (%) (Auto) 0.4 % (0.0-5.0) Neutrophils # (Auto) 5.2 K/uL (1.8-7.7) Lymphocytes # (Auto) 1.0 K/uL (1.0-4.8) Monocytes # (Auto) 0.4 K/uL (0.1-1.0) Eosinophils # (Auto) 0.05 K/uL (0.00-0.70) Basophils # (Auto) 0.03 K/uL (0.00-0.20) Absolute Immature Granulocyte (auto 0.02 K/uL (0-1) Nucleated Red Blood Cells 0.0 % (0.0-0.19) Prothrombin Time 10.7 SEC (9.6-11.6) Prothromb Time International Ratio 0.95 (0.85-1.15) Activated Partial Thromboplast Time 27.6 SEC (26.3-35.5) Sodium Level 146 mmol/L (136-145) H Potassium Level 3.9 mmol/L (3.5-5.1) Chloride Level 110 mmol/L (101-111) Carbon Dioxide Level 28 mmol/L (21-32) Blood Urea Nitrogen 15 mg/dL (7-18) Creatinine 1.0 mg/dL (0.5-1.3) Glomerular Filtration Rate Calc 78 mL/min (>90) Random Glucose 101 mg/dL (70-105) Total Calcium 8.6 mg/dL (8.5-10.1) Total Creatine Kinase 498 U/L (21-232) #*H Troponin I High Sensitivity 76 ng/L (4-75) *H 184 ng/L (4-75) *H B-Type Natriuretic Peptide 46 pg/mL (0-100) MDM MDM: Differential diagnosis: Rationale: Tests considered and ordered secondary to shared decision making include: Previous outside records reviewed: Old ER visits. Risk of complication and/or morbidity or mortality of patient management: None Medications-Per medication reconciliation Need for hospitalization: Patient does meet criteria for hospitalization. Need for emergency major/minor surgery: No There are no social concerns with this patient. Prescription drug management Prescriptions will include symptomatic care Patient's prior external medical records from other ER visits were reviewed by me as indicated. Prior testing and results from previous visits were reviewed. Prior tests were taken into account with medical decision making and resource utilization, independent historian/historians were used to obtain complete medical history. I independently interpreted the test that were performed, results were reviewed by me and considered findings on radiology if ordered. Medical management and examination interpretation discussions were had by me with other qualified healthcare professionals as indicated for the patient's care. ED Course Orders Procedure Category Date Status Time 12 Lead Ekg Tracing- EKG 10/27/24 Logged Technical 09:17 Cbc With Differential LAB 10/27/24 Complete 09:17 Basic Metabolic Panel LAB 10/27/24 Complete 09:17 Creatine Kinase, Total LAB 10/27/24 Complete 09:17 B-Type Natriuretic LAB 10/27/24 Complete Peptide 09:17 Pt And Ptt LAB 10/27/24 Complete 09:17 Troponin I High LAB 10/27/24 Complete Sensitivity 09:17 Chest 1vw RAD 10/27/24 Resulted 09:17 Troponin I High LAB 10/27/24 Complete Sensitivity 11:34 Vital Signs Date Time Temp Pulse Resp B/P (MAP) Pulse Ox O2 Delivery O2 Flow Rate FiO2 10/27/24 09:22 88 15 115/65 97 Room Air* 0 21 10/27/24 09:10 98.8 92 20 105/73 98 Nasal Cannula 0 DX & DISP Disposition: Inpatient Departure Impression: Primary Impression: Palpitations Additional Impression: Cardiac amyloidosis Condition: Stable Referrals: JOSEY RIZO MD (PCP) TARA CADENA MD Oct 27, 2024 13:45
--- NOTE | 2024-10-27 14:27 | HP ---
[facility] HISTORY AND PHYSICAL Date of Service: Oct 27, 2024 Time of Service: 14:27 HISTORY OF PRESENT ILLNESS: [ Date of service: 10/27/2024, patient was seen in ER room 19 74-year-old male with underlying history of cardiac amyloidosis, history of recurrent SVTs (3-4 episodes of SVT this year requiring ER evaluation), hyperlipidemia, type 2 diabetes mellitus, GERD, gastritis, anxiety, who presented to the ER for further evaluation of dizziness and palpitations. Patient states that close to 3:00 a.m. today, while he was ambulating to the restroom, he felt significantly lightheaded, dizzy and felt palpitations. Patient has had previous history of palpitations before and has history of SVT. Patient is followed by Dr. Flores and is being treated with Vyndamax for management of amyloidosis. Patient states that yesterday, while he was running his errands, he felt significant dyspnea on exertion with activity and felt tired and fatigued. Denies any fevers, chills, respiratory congestion, rhinorrhea. He feels that his exertional activity is limited due to his underlying cardiac condition. Patient called EMS who found patient to be in SVT with heart rate in the 150s, he received a dose of IV adenosine 6 mg and on presentation to [facility], he was noted to have normal sinus rhythm. Lab work significant for cardiac panel which was checked initially was noted to be elevated at 76 and 2nd troponin went to 184. ER requested patient be admitted and troponin to be trended. Consultation with Cardiology will be requested. We will obtain 2D echocardiogram and we will see how patient progresses. ] REVIEW OF SYSTEMS CONSTITUTIONAL: Asthenia, malaise NEUROLOGICAL: Denies headache, amaurosis fugax, motor weakness, sensory deficit, vertigo/spinning sensation, gait abnormalities, or tremors. ENT: No hearing loss, otalgia, otorrhea, rhinitis, rhinorrhea, hoarseness, or sore throat. CARDIOVASCULAR: Dyspnea on exertion, shortness of breath, palpitations PULMONARY: Denies any shortness of breath, cough, phlegm/sputum, hemoptysis, pleuritic chest pain. SLEEP: Denies morning headaches, daytime somnolence or napping. Denies difficulty falling asleep, staying asleep, waking from sleep. Denies knowledge of snoring. GASTROINTESTINAL: Denies any type of dysphagia to either liquids or solids. Denies nausea, vomiting, pyrosis, early satiety, abdominal pain, diarrhea, constipation, or changes in stool consistency or caliber. Denies coffee-ground emesis, hematemesis, hematochezia, or melanotic stools. GENITOURINARY: Denies frequency, urgency, nocturia, hematuria or incontinence (Storage/Irritative symptoms.) Low urinary stream, straining to void, urinary intermittency or hesitancy, splitting of the voiding stream, terminal dribbling. ENDOCRINOLOGIC: Denies polyuria, polydipsia, polyphagia or heat/cold intolerances. HEMATOLOGIC: Denies thrombophilia/previous clots, or coagulopathy/bleeding disorders. ONCOLOGIC: Denies personal history of malignancy. DERMATOLOGIC: Denies rashes or pruritus. PSYCHIATRIC: Denies any suicidal or homicidal ideation. Denies hallucinations. PAST MEDICAL HISTORY: [Recent history of cardiac amyloidosis, history of recurrent SVTs, BPH, type 2 diabetes mellitus, anxiety, depression, hyperlipidemia ] PAST SURGICAL HISTORY: [ Appendectomy, cholecystectomy, left elbow surgery ] PAST SOCIAL HISTORY: [ Denies active smoking or alcohol consumption, resides with at home ] FAMILY HISTORY: [Reports family history of heart disease ] Allergies: Penicillin, albuterol, cefdinir, codeine, lisinopril, tramadol Home medications: will be bringing list of home medications to be reconciled and updated Coded Allergies: Penicillins (Verified Allergy, Unknown, 03/02/14) albuterol (Unverified Allergy, Unknown, 07/06/21) cefdinir (Unverified Allergy, Unknown, 07/06/21) codeine (Unverified Allergy, Unknown, 07/06/21) lisinopril (Unverified Allergy, Unknown, 07/06/21) tramadol (Unverified Allergy, Unknown, 07/06/21) PHYSICAL EXAM GENERAL APPEARANCE: The patient is awake, alert, and oriented, in no acute cardiopulmonary distress. NEUROLOGICAL: Cranial nerves II-XII grossly intact. Motor is 5/5 in bilateral upper and lower extremities proximal to distal. No sensory deficits. HEENT: Face is symmetric. Pupils are equal and reactive. Extraocular movements are intact. NECK: Supple. No JVD. No thyromegaly. No submental, submandibular, pre- /postauricular, occipital or supraclavicular lymphadenopathy. CHEST: Normal chest expansion. No Telemetry. LUNGS: Absence of any rales, rhonchi or any wheezing. CARDIOVASCULAR: Regular. S1 and S2 normal. No appreciable rubs, murmurs or gallops. ABDOMEN: Soft, nontender, and nondistended. There is no rebound, voluntary guarding, or rigidity. : Deferred. No Cason. EXTREMITIES: Non-edematous and not cyanotic. No clubbing. Good capillary refill. SKIN: No skin breakdown. Vital Sign (Last 24 Hours) 10/27/24 10/27/24 09:10 09:22 Temp 98.8 Pulse 88 Resp 15 B/P (MAP) 115/65 Pulse Ox 97 O2 Delivery Room Air* O2 Flow Rate 0 FiO2 21 LABS: Laboratory: Test 10/27/24 12:07 10/27/24 09:30 Range/Units Troponin I High Sensitivity 184 *H 4-75 ng/L White Blood Count 6.7 4.8-10.8 K/uL Red Blood Count 3.75 L 4.50-6.20 MIL/uL Hemoglobin 12.0 L 14.0-18.0 g/dL Hematocrit 36.8 L 42-54 % Mean Corpuscular Volume 98.1 79-99 fL Mean Corpuscular Hemoglobin 32.0 27.0-33.0 pg Mean Corpuscular Hemoglobin Concent 32.6 32.0-36.0 g/dL Red Cell Distribution Width 13.7 11.0-15.5 % Platelet Count 149 130-400 K/uL Mean Platelet Volume 9.0 7.5-10.5 fL Immature Granulocyte % (Auto) 0.3 0-1 % Neutrophils (%) (Auto) 77.4 H 40.0-77.0 % Lymphocytes (%) (Auto) 15.4 L 21.0-51.0 % Monocytes (%) (Auto) 5.8 3.0-13.0 % Eosinophils (%) (Auto) 0.7 0.0-8.0 % Basophils (%) (Auto) 0.4 0.0-5.0 % Neutrophils # (Auto) 5.2 1.8-7.7 K/uL Lymphocytes # (Auto) 1.0 1.0-4.8 K/uL Monocytes # (Auto) 0.4 0.1-1.0 K/uL Eosinophils # (Auto) 0.05 0.00-0.70 K/uL Basophils # (Auto) 0.03 0.00-0.20 K/uL Absolute Immature Granulocyte (auto 0.02 0-1 K/uL Nucleated Red Blood Cells 0.0 0.0-0.19 % Prothrombin Time 10.7 9.6-11.6 SEC Prothromb Time International Ratio 0.95 0.85-1.15 Activated Partial Thromboplast Time 27.6 26.3-35.5 SEC Sodium Level 146 H 136-145 mmol/L Potassium Level 3.9 3.5-5.1 mmol/L Chloride Level 110 101-111 mmol/L Carbon Dioxide Level 28 21-32 mmol/L Blood Urea Nitrogen 15 7-18 mg/dL Creatinine 1.0 0.5-1.3 mg/dL Glomerular Filtration Rate Calc 78 >90 mL/min Random Glucose 101 70-105 mg/dL Total Calcium 8.6 8.5-10.1 mg/dL Total Creatine Kinase 498 #*H 21-232 U/L B-Type Natriuretic Peptide 46 0-100 pg/mL Current Medications Medications (Trade) Dose Ordered Sig/Kenneth Route PRN Reason Start Time Stop Time Status Last Admin Dose Admin Acetaminophen (TYLenol 500MG TAB) 500 mg Q6H PRN PO MILD PAIN (1-3) 10/27/24 14:30 11/26/24 14:29 Clonazepam (KLONopin 1MG TAB) 1 mg TID PO 10/27/24 15:00 11/26/24 14:59 Magnesium Sulfate 50 ml @ 0 mls/hr PROTOCOL IV 10/27/24 14:30 11/26/24 14:29 Ondansetron HCl (zoFRAN 4MG INJ) 4 mg Q6H PRN IVP NAUSEA/VOMITING 10/27/24 14:30 11/26/24 14:29 Potassium Chloride 100 ml @ 100 mls/hr AD PRN IV POTASSIUM PROTOCOL 10/27/24 14:30 11/26/24 14:29 Potassium Chloride (K-Dur/Klor-Con 20meq) 20 meq AD PRN PO POTASSIUM PROTOCOL 10/27/24 14:30 11/26/24 14:29 Potassium Chloride (KCl 10% Elixir 20meq/15ml) 20 meq AD PRN PO POTASSIUM PROTOCOL 10/27/24 14:30 11/26/24 14:29 DIAGNOSTICS / RADIOLOGY: [SERVICE 6 REASON: Shortness of breath ORDERING PHYSICIAN: TARA CADENA MD PROCEDURE: CXR1VW - CHEST 1VW INDICATION: Shortness of breath TECHNIQUE: CHEST 1VW COMPARISON: 07/06/2024 FINDINGS/IMPRESSION: Prominent bilateral interstitial markings which may represent bronchitis or vascular congestion in the proper clinical setting. Cardiac silhouette is within normal limits. Mild degenerative changes of the spine. The visualized upper abdomen appears unremarkable. DICTATED BY: JACK EDWARDS MD DATE: 10/27/24 102 ELECTRONICALLY SIGNED BY: JACK EDWARDS MD DATE: 10/27/24 1029 ] ASSESSMENT: SVT status post conversion with IV adenosine, POA Uptrending cardiac troponin, POA History of recurrent SVTs, POA Underlying history of cardiac amyloidosis, POA Debility/frailty, POA Recent history of dyspnea on exertion/shortness of breath with exertional activities, POA History of anxiety, POA History of cervical radiculopathy, POA BPH, POA Type 2 diabetes mellitus, POA PLAN: [Patient will be admitted to cardiac telemetry floor We will trend troponin until it peaks We will obtain 2D echocardiogram Patient denies active chest pain, elevated troponin likely secondary to SVT, we will follow up Cardiology recommendations, patient has had a previous nonobstructive coronary catheterization from 2021 per Cardiology Patient recently has noticed progressive dyspnea on exertion and he feels shortness of breath with minimal activities, could be likely secondary to possibly his progression of cardiac amyloidosis, we will obtain 2D echocardiogram Resume patient's home medications once available, continue with Vyndamax daily Maintain K greater than four and magnesium greater than two Monitor closely for signs of infection, we will check a urinalysis All labs will be repeated in the morning We will request consultation with PT Physical therapy in a.m. Date of service: 10/27/2024 Plan of care was discussed with patient and at bedside, Miguel Angel Koch MD Advanced Care Planning: Which of the following were discussed: Hospice care: Yes __ No _X_ Therapeutic options: Yes _X_ No __ Advance directives: Yes _X_ No __ Other discussions: Discussed with who?: Patient Voluntary nature of this service was explained to the patient? Yes _x_ No __ Amount of time spent: 20 minutes ] MIGUEL ANGEL KOCH MD Oct 27, 2024 14:27
[2024-10-27] MEDS ORDERED: PoTASSium chloRIDE 20MEQ ER 20 MEQ ERTAB PO PRN (14:30)
[2024-10-27] MEDS ORDERED: acetaMINOPHEN 500 MG TABLET PO PRN (14:30)
[2024-10-27] MEDS ORDERED: PoTASSium chloRIDE 20MEQ/100ML 100 ML IV PRN (14:30)
[2024-10-27] MEDS ORDERED: PoTASSium chl 10% ELIXIR 20MEQ 20 MEQ/15 ML UDCUP PO PRN (14:30)
[2024-10-27] MEDS ORDERED: ondanSETRON 4MG INJ IVP PRN (14:30)
--- NOTE | 2024-10-27 14:34 | NUR ---
PT TO CT VIA STRETCHER
[2024-10-27 14:41] LABS: ALBUMIN 3.4 g/dL (3.5-5.0); BILIRUBIN,DIRECT 0.2 mg/dL (0.0-0.3); BILIRUBIN,TOTAL 0.5 mg/dL (0.2-1.0); MAGNESIUM 1.9 mg/dL (1.80-2.40); TOTAL PROTEIN, SERUM 6.9 g/dL (6.0-8.3)
--- NOTE | 2024-10-27 14:55 | HMCIMG ---
CT HEAD/BRAIN W/O CONTRAST INDICATION: dizziness, light headedness TECHNIQUE: CT HEAD/BRAIN W/O CONTRAST. CT was performed with one or more of the following dose reduction techniques: Automated exposure control, adjustment of the mA and/or kV according to the patient's size, or use of the iterative reconstruction technique. Comparison: None FINDINGS: Cerebral atrophy seen. Nonspecific periventricular and subcortical white matters changes are noted likely representing small vessel ischemic changes. No midline shift or herniation. No extra axial collection. No acute intracranial bleed. There is mucosal thickening the bilateral maxillary sinuses. Remaining paranasal sinuses and mastoid air cells are clear. IMPRESSION: Diffuse atrophy. No acute intracranial bleed is seen. Nonspecific white matter changes
[2024-10-27] MEDS: clonazePAM 1MG TAB PO SCH (15:00)
--- NOTE | 2024-10-27 15:09 | NUR ---
BED ASSIGNMENT: BED 224 ASSIGNED BY THE CORE DRILL OPERATOR. DAGMAR RN TO BE THE NURSE
--- NOTE | 2024-10-27 15:23 | EKG ---
[facility] Test Date: 2024-10-27 Test Time: 09:34:27 Pat Name: PJ CALDERON Department: [facility] Patient ID: [id number] Room: 224 Gender: M Storage Consultant: [id number] : 1950 Requested By: TARA CADENA Order Number: [id number] Reading MD: Thang Bingham Measurements Intervals Ferriday Rate: 92 P: 22 RI: 135 QRS: -15 QRSD: 102 T: 1 QT: 364 QTc: 449 Interpretive Statements Sinus rhythm Probable left ventricular hypertrophy Compared to ECG 07/06/2024 10:44:23 No significant changes Electronically Signed On 10-27-2024 17:02:27 PARTNERSHIP DEVELOPMENT MANAGER by Thang Bingham Please click the below link to view image of tracing.
[2024-10-27] MEDS ORDERED: ROSU5TAB51 PO (15:44)
[2024-10-27] MEDS ORDERED: LATA2.5D14 OU (15:44)
[2024-10-27] MEDS ORDERED: PANT40TA54 PO ×2 (15:44→17:10)
[2024-10-27] MEDS ORDERED: TAMS-1 PO (15:44)
[2024-10-27] MEDS ORDERED: TAFA61CA PO (15:44)
[2024-10-27] MEDS ORDERED: DUTA0.5C37 PO (15:44)
[2024-10-27] MEDS ORDERED: PHARMACY COMMUNICATION MISC SCH (16:00)
[2024-10-27] MEDS: TAFAMIDIS PO SCH (16:00)
--- NOTE | 2024-10-27 16:12 | NUR ---
MED REC: NOT COMPLETED, DAGMAR PARNELL AWARE
[2024-10-27] MEDS ORDERED: METF-444 PO (17:10)
[2024-10-27] MEDS: MAGNESIUM 2GM PREMIX 50ML 50 ML IV SCH (17:11)
[2024-10-27 17:15] VITALS: BP 135/71; PULSE 86; RESP 20; TEMP 97.7
[2024-10-27 19:30] VITALS: O2SAT 96
[2024-10-27 19:50] VITALS: BP 108/59; PULSE 69; RESP 20; TEMP 97.5
[2024-10-27] MEDS: atorVAStatin 20 MG TABLET PO SCH (20:47)
[2024-10-27] MEDS: tamSULOsin HCL 0.4 MG CAP.ER.24H PO SCH (20:47)
[2024-10-27] MEDS: SERTraline HCL 50 MG TABLET PO SCH (20:49)
[2024-10-27] MEDS: LATANOPROST 2.5 ML DROPS OU SCH (21:36)
[2024-10-27 23:50] VITALS: BP 111/63; PULSE 68; RESP 18; TEMP 97.6
[2024-10-28 03:50] VITALS: BP 117/68; PULSE 67; RESP 18; TEMP 97.7
[2024-10-28 04:00] LABS: APPEARANCE,URINE CLEAR (CLEAR); BILIRUBIN,URINE NEGATIVE (NEGATIVE); COLOR,URINE LIGHT-YELLOW (YELLOW); GLUCOSE, URINE (UA) NEGATIVE (NEGATIVE); KETONES,URINE 5 mg/dL (NEGATIVE); LEUKOCYTE ESTERASE ,URINE NEGATIVE Leu/uL (NEGATIVE); NITRATE,URINE NEGATIVE (NEGATIVE); PH,URINE 5.5 (5.0-8.0); PROTEIN,URINE NEGATIVE (NEGATIVE); UROBILINOGEN,URINE 0.2 mg/dL (0.2-1.0)
[2024-10-28 04:25] LABS: BASOPHILS # (AUTO) 0.02 K/uL (0.00-0.20); BASOPHILS % (AUTO) 0.3 % (0.0-5.0); EOSINOPHILS # (AUTO) 0.11 K/uL (0.00-0.70); EOSINOPHILS % (AUTO) 1.9 % (0.0-8.0); HEMATOCRIT 35.6 % (42-54); IMMATURE GRANULOCYTE ABSOLUTE 0.02 K/uL (0-1); LYMPHOCYTES # (AUTO) 1.5 K/uL (1.0-4.8); LYMPHOCYTES % (AUTO) 25.3 % (21.0-51.0); MEAN CORPUSCULAR HEMOGLOBIN 31.4 pg (27.0-33.0); MEAN CORPUSCULAR HGB CONC 32.3 g/dL (32.0-36.0); MEAN CORPUSCULAR VOLUME 97.3 fL (79-99); MONOCYTES # (AUTO) 0.4 K/uL (0.1-1.0); MONOCYTES % (AUTO) 7.5 % (3.0-13.0); NEUTROPHILS # (AUTO) 3.7 K/uL (1.8-7.7); NEUTROPHILS % (AUTO) 64.7 % (40.0-77.0); PLATELET COUNT (AUTO) 179 K/uL (130-400); RED BLOOD CELL COUNT(AUTO) 3.66 MIL/uL (4.50-6.20); RED CELL DISTRIBUTION WIDTH 13.6 % (11.0-15.5); WHITE BLOOD COUNT (AUTO) 5.8 K/uL (4.8-10.8)
[2024-10-28 04:40] LABS: ADD UA MICROSCOPIC YES
[2024-10-28 04:47] LABS: ALBUMIN 3.3 g/dL (3.5-5.0); BILIRUBIN,TOTAL 0.4 mg/dL (0.2-1.0); MAGNESIUM 2.3 mg/dL (1.80-2.40); POTASSIUM 3.9 mmol/L (3.5-5.1); TOTAL PROTEIN, SERUM 6.7 g/dL (6.0-8.3)
[2024-10-28 04:59] LABS: MUCUS,URINE RARE LPF (None Seen); RBC,URINE 0-1 /HPF (0-1); SQUAMOUS EPITHELIAL CELL,UR RARE /HPF (0-2)
[2024-10-28 08:00] VITALS: BP 135/73; PULSE 67; RESP 20; TEMP 97.6; O2SAT 98
[2024-10-28] MEDS ORDERED: TAFAMIDIS PO SCH (09:00)
[2024-10-28] MEDS: PANTOPrazole 40 MG TAB DR PO SCH (10:05)
[2024-10-28] MEDS: fluTICasone proPIONate 50MCG/SPRAY 16 GM BOTTLE EN SCH (10:05)
[2024-10-28] MEDS: SERTraline HCL 50 MG TABLET PO SCH (10:05)
[2024-10-28] MEDS: DUTASTERIDE PO SCH (10:09)
[2024-10-28 11:45] VITALS: BP 126/85; PULSE 72; RESP 20; TEMP 97.7
--- NOTE | 2024-10-28 12:04 | CONS ---
[facility] CARDIOLOGY CONSULTATION REPORT Date Patient Seen: Oct 28, 2024 Time of Visit: 11:39 Requesting Physician: Miguel Angel Koch MD Reason for Consultation: SVT History of Present Illness: This is a 74-year-old Latin-Ira[place] male with a past medical history of lifelong SVT, previously on propranolol but discontinued due to hypotension, type 2 diabetes mellitus, hypertension, dyslipidemia, normal coronary arteries by cardiac catheterization 03/08/2022 and cardiac amyloidosis presented to the emergency department on 10/27/2024 due to palpitations. The patient reports that he awoke in the inside wireman hours approximately 4:00 a.m. on 10/27/2024, he had a sensation as if palpitations were coming on, he felt a little diaphoretic. He got up to the bathroom to brush his teeth and as he was rinsing his mouth, was experiencing palpitations with the associated dizziness/l ightheadedness and near-syncope and fell onto a nearby recliner. He denies any loss of consciousness. EMS was summoned and according to the ER notes, he was found to have a heart rate in the 150 beat per minute range and was given adenosine 6 mg IV with normalization to a normal sinus rhythm by the time the patient was evaluated in the ER. His EKG in the emergency department has demonstrated a normal sinus rhythm with a heart rate of 92 beats per minute. He was admitted for further management. He has had no recurrent arrhythmias/SVT overnight. He did have a rise in his troponins from 76>>> 184>>>254>>>183 prompting cardiology consultation on 10/28/2024. The patient denied any chest pain. He has had chronic dyspnea on exertion at about 40 ft of ambulation in his undergone pulmonary evaluation with no specific findings. His cardiac catheterization in 2021 demonstrated normal coronary arteries. He offers no complaints this morning other than relates a history of chronic back pain including C-spine disc disease and back pain which limits his activities. Past Medical History: Lifelong history of SVT, previously on propranolol but withdrawn due to hypotension Type 2 diabetes mellitus Hypertension Dyslipidemia Depression/anxiety GERD BPH History of paroxysmal AFib Normal Lexiscan Cardiolite stress test 07/08/2021 Normal right and left heart catheterization 03/08/2022 Nuclear medicine myocardial QNT PYP uptake with SPECT 08/18/2022 positive for grade 3 qualitative study for amyloid Cardiac amyloidosis Normal LV systolic function with an LVEF of greater than 55% by 2D echocardiogram 01/06/2024 Past Surgical History: Appendectomy Cholecystectomy Left elbow surgery Family History: Noncontributory Social History: The patient is , lives with spouse Habits: Non smoker. Denies alcohol consumption. Denies illicit drug use Home Meds: Vyndamax 61 mg p.o. daily Rosuvastatin 5 mg p.o. daily and other noncardiac medications Review of Systems: CONST: No fever, fatigue, or weight changes. EYES: No recent vision problems. ENT: No congestion, ear pain, or sore throat. C/V: Positive for palpitations and near-syncope with the associated dizziness and lightheadedness as per HPI. No chest pain or edema. RESP: No cough, congestion, wheezing or shortness of breath. GI: No abdominal pain, nausea, vomiting, constipation, or diarrhea. : No incontinence or dysuria. SKIN: No rash. NEURO: No headache, focal numbness or weakness, dizziness, or seizures. PSYCH: No depression or anxiety. HEME: No abnormal bruising or bleeding. LYMPH: No swollen glands. Physical Examination: GENERAL: No acute distress. HEAD: Normal with no signs of head trauma. EYES: PERRLA, EOMI, conjunctiva and sclera normal. ENT: Hearing grossly intact, normal oropharynx. NECK: Supple without JVD. There is no tenderness, lymphadenopathy, or masses. No thyromegaly. Normal carotid upstrokes without bruits. LUNGS: Clear breath sounds bilaterally. No wheezes, or rhonchi. HEART: Normal rate and rhythm. Normal S1 and S2 without murmurs, gallop or rub. VASC: Peripheral pulses +2 bilaterally. ABD: Bowel sounds normal, soft, nontender, no masses, no organomegaly. No audible bruits. : Not examined LYMPH: No lymphadenopathy noted. EXT: No clubbing, cyanosis or edema. SKIN: No rashes or lesions noted. NEURO: Awake, alert, and oriented x3. No focal sensory or strength deficits noted. Vital Signs (last 8hr) Date Time Temp Pulse Resp B/P (MAP) Pulse Ox O2 Delivery O2 Flow Rate FiO2 10/28/24 08:00 97.5 67 20 135/73 98 Room Air 10/28/24 03:50 97.7 67 18 117/68 96 Room Air Laboratory: Hematology Labs: Test 10/28/24 03:54 Range/Units White Blood Count 5.8 4.8-10.8 K/uL Red Blood Count 3.66 L 4.50-6.20 MIL/uL Hemoglobin 11.5 L 14.0-18.0 g/dL Hematocrit 35.6 L 42-54 % Mean Corpuscular Volume 97.3 79-99 fL Mean Corpuscular Hemoglobin 31.4 27.0-33.0 pg Mean Corpuscular Hemoglobin Concent 32.3 32.0-36.0 g/dL Red Cell Distribution Width 13.6 11.0-15.5 % Platelet Count 179 130-400 K/uL Mean Platelet Volume 9.1 7.5-10.5 fL Immature Granulocyte % (Auto) 0.3 0-1 % Neutrophils (%) (Auto) 64.7 40.0-77.0 % Lymphocytes (%) (Auto) 25.3 21.0-51.0 % Monocytes (%) (Auto) 7.5 3.0-13.0 % Eosinophils (%) (Auto) 1.9 0.0-8.0 % Basophils (%) (Auto) 0.3 0.0-5.0 % Neutrophils # (Auto) 3.7 1.8-7.7 K/uL Lymphocytes # (Auto) 1.5 1.0-4.8 K/uL Monocytes # (Auto) 0.4 0.1-1.0 K/uL Eosinophils # (Auto) 0.11 0.00-0.70 K/uL Basophils # (Auto) 0.02 0.00-0.20 K/uL Absolute Immature Granulocyte (auto 0.02 0-1 K/uL Nucleated Red Blood Cells 0.0 0.0-0.19 % Chemistry Labs: Test 10/28/24 10:35 10/28/24 03:54 10/27/24 12:07 10/27/24 09:30 Range/Units Whole Blood Glucose 126 H 70-110 MG/DL Sodium Level 144 136-145 mmol/L Potassium Level 3.9 3.5-5.1 mmol/L Chloride Level 107 101-111 mmol/L Carbon Dioxide Level 27 21-32 mmol/L Blood Urea Nitrogen 14 7-18 mg/dL Creatinine 1.0 0.5-1.3 mg/dL Glomerular Filtration Rate Calc 78 >90 mL/min Random Glucose 113 H 70-105 mg/dL Total Calcium 8.7 8.5-10.1 mg/dL Magnesium Level 2.30 1.80-2.40 mg/dL Total Bilirubin 0.4 0.2-1.0 mg/dL Aspartate Amino Transf (AST/SGOT) 31 10-37 U/L Alanine Aminotransferase (ALT/SGPT) 16 12-78 U/L Alkaline Phosphatase 54 50-136 U/L Total Creatine Kinase 904 #*H 21-232 U/L Troponin I High Sensitivity 183 *H 4-75 ng/L Total Protein 6.7 6.0-8.3 g/dL Albumin 3.3 L 3.5-5.0 g/dL Direct Bilirubin 0.2 0.0-0.3 mg/dL C-Reactive Protein, Quantitative 13.10 H 0.5-3.0 mg/L Procalcitonin < 0.05 L 0.05-0.5 ng/mL B-Type Natriuretic Peptide 46 0-100 pg/mL Coagulation Labs: Test 10/27/24 09:30 Range/Units Prothrombin Time 10.7 9.6-11.6 SEC Prothromb Time International Ratio 0.95 0.85-1.15 Activated Partial Thromboplast Time 27.6 26.3-35.5 SEC Diagnostics / Radiology: Chest x-ray 10/27/2024: PROCEDURE: CXR1VW - CHEST 1VW INDICATION: Shortness of breath TECHNIQUE: CHEST 1VW COMPARISON: 07/06/2024 FINDINGS/IMPRESSION: Prominent bilateral interstitial markings which may represent bronchitis or vascular congestion in the proper clinical setting. Cardiac silhouette is within normal limits. Mild degenerative changes of the spine. The visualized upper abdomen appears unremarkable. Impression and Plan: Lifelong history of SVT, suspect recurrent SVT (rhythm strips from EMS not available): No prior attempt at ablation procedure: -the patient had an ER visit 07/06/2024 for SVT and had a prior ER visit 01/20/2024 for SVT -the patient had orthostatic blood pressures checked today which included a supine blood pressure 146/76, sitting blood pressure 127/70, standing blood pressure at 1 minute of 137/77 and standing further at 3 minutes of 121/70 -telemetry has demonstrated sinus rhythm heart rate of 67-78 -proceed with initiation of verapamil ER 120 mg p.o. daily -arrange outpatient follow up with Dr. Ananth Apodaca, in one week for EP consultation and consider EPS with SVT ablation -cleared for discharge home today Elevated troponins in the setting of SVT with rapid ventricular response: Normal coronary arteries by prior cardiac catheterization 03/08/2022: -no specific cardiac workup at this time Cardiac amyloidosis: -continue Vyndamax 61 mg p.o. daily Comorbidities: Lifelong history of SVT, previously on propranolol but withdrawn due to hypotension Type 2 diabetes mellitus Hypertension Dyslipidemia Depression/anxiety GERD BPH History of paroxysmal AFib Normal Lexiscan Cardiolite stress test 07/08/2021 Normal right and left heart catheterization 03/08/2022 Nuclear medicine myocardial QNT PYP uptake with SPECT 08/18/2022 positive for grade 3 qualitative study for amyloid Cardiac amyloidosis Normal LV systolic function with an LVEF of greater than 55% by 2D echocardiogram 01/06/2024 PHYSICIAN ATTESTATION OF PHYSICIAN PICKLE SOLUTION MAKER DOCUMENTATION: I attest that I was physically present for the baig portions of the service and evaluated the patient with the Physician Clinical Field Specialist, and I reviewed and discussed the case with the Physician Clinical Field Specialist and made modifications to the Physician Clinical Field Specialist's findings and plans of care as documented above VIRAL ESPINOSA Oct 28, 2024 12:04 BIENVENIDO BOGGS MD Oct 28, 2024 14:07
[2024-10-28 12:15] VITALS: BP_SYST 121; BP_SYST 127; BP_SYST 137; BP_SYST 146; BP_DIAS 70; BP_DIAS 76; BP_DIAS 77
[2024-10-28] MEDS: VERAPAMIL HCL 240 MG SRTAB PO SCH (14:03)
[2024-10-28] MEDS ORDERED: VERA120C2 PO (14:09)
--- NOTE | 2024-10-28 17:01 | DS ---
Discharge Summary Hospital Course Summary: Patient admitted to the hospital October 27, 2024 with the following history of the present illness: 74-year-old male with underlying history of cardiac amyloidosis, history of r ecurrent SVTs (3-4 episodes of SVT this year requiring ER evaluation), hyperlipidemia, type 2 diabetes mellitus, GERD, gastritis, anxiety, who presented to the ER for further evaluation of dizziness and palpitations. Patient states that close to 3:00 a.m. today, while he was ambulating to the restroom, he felt significantly lightheaded, dizzy and felt palpitations. Patient has had previous history of palpitations before and has history of SVT. Patient is followed by Dr. Flores and is being treated with Vyndamax for management of amyloidosis. Patient states that yesterday, while he was running his errands, he felt significant dyspnea on exertion with activity and felt tired and fatigued. Denies any fevers, chills, respiratory congestion, rhinorrhea. He feels that his exertional activity is limited due to his underlying cardiac condition. Patient called EMS who found patient to be in SVT with heart rate in the 150s, he received a dose of IV adenosine 6 mg and on presentation to [facility], he was noted to have normal sinus rhythm. Lab work significant for cardiac panel which was checked initially was noted to be elevated at 76 and 2nd troponin went to 184. ER requested patient be admitted and troponin to be trended. Consultation with Cardiology requested. Patient was evaluated by tavern keeper, recommended to proceed with the verapamil ER 120 mg p.o. daily and arrange for outpatient follow up with Dr. Brielle monreal in one week for EP consultation and to consider EPS with the SVT ablation. Clear for discharge home today. At the time of my visit patient alert oriented x3, hemodynamically stable, no dizziness, no chest pain, shortness shortness for breath, no nausea, no vomiting. Edge Sawyer(s): Cardiology. Assessment/Plan: Final diagnosis SVT status post conversion with IV adenosine, POA Uptrending cardiac troponin, POA History of recurrent SVTs, POA Underlying history of cardiac amyloidosis, POA Debility/frailty, POA Recent history of dyspnea on exertion/shortness of breath with exertional activities, POA History of anxiety, POA History of cervical radiculopathy, POA BPH, POA Type 2 diabetes mellitus, POA Discharge Instructions: The patient to be discharged home today, to follow up with primary care physician and tavern keeper as an outpatient. Patient to have also follow up as an outpatient with Dr. Ananth Apodaca in one week for EP consultation and consider EPS with SVT ablation. Patient to return to the hospital if his condition changes. Patient agreed and understood the information provided. Home Medications: Reported Medications Pantoprazole Sodium (Pantoprazole Sodium) 40 Mg Tablet.dr, 1 TAB PO DAILY for 30 Days, #30 TAB 0 Refills 10/27/24 Metformin HCl (Metformin HCl) 500 Mg Tablet, 1 TAB PO BID for 30 Days, #60 TAB 0 Refills 10/27/24 Rosuvastatin Calcium (Rosuvastatin Calcium) 5 Mg Tablet, 1 TAB PO DAILY 10/27/24 Pantoprazole Sodium (Pantoprazole Sodium) 40 Mg Tablet.dr, 1 TAB PO DAILY 10/27/24 Tafamidis (Vyndamax) 61 Mg Capsule, 1 CAP PO DAILY 10/27/24 Latanoprost (Latanoprost) 0.005 % Drops, 1 DROP OU HS 10/27/24 Tamsulosin HCl (Flomax) 0.4 Mg Cap.er.24h, 1 CAP PO HS 10/27/24 Dutasteride (Dutasteride) 0.5 Mg Capsule, 1 CAP PO DAILY 10/27/24 Fluticasone Propionate (Fluticasone Propionate) 15.8 Ml Aldrich.susp, 1 SPRAY NS DAILY 03/07/22 Omeprazole (Omeprazole) 40 Mg Capsule.dr, 40 MG PO DAILY, CAP 03/07/22 Sertraline HCl (Zoloft) 50 Mg Tablet, 50 MG PO BID, TAB 01/30/17 Clonazepam (Klonopin) 1 Mg Tablet, 1 MG PO TID, TAB 01/30/17 Latanoprost (Xalatan 0.005% Ophth Soln) 20 Drop/Ml Opsol, 1 DROP .AD HS, DROP 01/30/17 Propranolol HCl (Propranolol HCl) 10 Mg Tablet, 5 MG PO DAILY PRN for IF SBP GREATER THAN 140, TAB 01/30/17 Dutasteride (Avodart) 0.5 Mg Cap, 0.5 MG PO HS, CAP 01/30/17 Time spent arranging discharge: 31-60 minutes KAYLA GARCIA MD Oct 28, 2024:01
[2024-10-28 17:04] VITALS: BP 137/75; PULSE 68; RESP 20; TEMP 98.6
--- NOTE | 2024-10-28 19:21 | NUR ---
[facility] LETTER INFORMED PATIENT OF CHANGE IN STATUS FROM IN TO TERI. PATIENT SIGNED [facility] LETTER. Addendum: 10/28/24 at 2 by HARRISON HINES CM Amended: Links added.
--- NOTE | 2024-10-28 19:30 | NUR ---
DISCHARGE INSTRUCTIONS WERE GIVEN TO THIS PATIENT AND SPOUSE AT BEDSIDE. THEY WERE IN AGREEMENT TO SETUP FOLLOW UP APPT WITH PCP IN 3-[address] DEGROOT/ DR. PIKE IN 1 WEEK. ALL BELONGINGS WERE TAKEN WITH THIS PATIENT. PIV TO LEFT AC WITH REMOVED WITH CATHETER INTACT AND DRY DRESSING APPLIED. TELE CARLOS A WAS REMOVED AND RETURNED TO TELEMETRY ROOM. PATIENT WAS TAKEN DOWN TO PRIVATE VEHICLE VIA WHEELCHAIR.
--- NOTE | 2024-10-28 20:30 | HMCSR ---
APPROVED REPORT EXAM: Two-dimensional and M-mode echocardiogram with Doppler and color Doppler. INDICATION ICD: Cardiac amyloidosis, dyspnea on exertion 2D Dimensions RVDd3.2 cmLVEF(%)86.1 (>50%)LVED Vol(simp.)93.9 mL IVSd0.6 (0.7-1.1cm)FS(%)55 %LVES Vol(simp.)35.9 mL LVDd4.0 (3.8-5.6cm)LA (2D)1.7 (1.6-4.0cm)LVEF(%, simp.)62 % PWd0.8 (0.7-1.1cm)Ao Root(2D)3.9 (2.0-3.7cm)LA ESV INDEX (4CH)16.20 mL/m2 IVSs1.5 cmLVOT diam2.6 (1.8-2.4cm)LA ESV INDEX (2CH)14.80 mL/m2 LVDs1.8 (2.5-4.0cm)LA ESV INDEX (BP)14.60 mL/m2 PWs1.3 cm Deformation Strain Apical 425.0 % Apical 230.0 % Apical 333.0 % Global Tqmmzr20.0 % M-Mode Dimensions EPSS0.9 cm LA (MM)2.3 (1.6-4.0cm) Ao Root(MM)3.6 (2.0-3.7cm) Aortic Valve AoV VTI0.2 mAo Mean GR2.0 mmHgLVOT VTI0.17 m CECI (VMAX)4.0 cm2Al P1/2T380 msAVA (VTI) 4.0 cm2 Mitral Valve MV E Vmax77.1 cm/sDECEL Zbjh528 ms MV A Vmax75.2 cm/sP 1/2 T76 ms E/A ratio1.0MVA (PHT)2.9 cm2 TDI E/E' Ujejuh64.8E/E' Cefseno79.9 Medial E' Peak V5.20 cm/sLateral E' Peak V7.10 cm/s Pulmonary Valve PI End Zina. Que 126.2 cm/s Tricuspid Valve RAP (EST) 8 mmHgRVSP8.0 mmHg Left Ventricle The left ventricle is normal size. GLS -28%. No characteristic apical sparing pattern on strain map. There is normal left ventricular wall thickness. Apical non-compaction. Echogenic myocardium in the i nteratrial septum and apical lateral mckeon. LVEF is 65-70%. Indeterminate diastolic dysfunction. Right Ventricle The right ventricle is normal size. The right ventricular systolic function is normal. Atria The left atrium size is small to normal. The right atrium size is normal. Aortic Valve The aortic valve is normal in structure. Trace of aortic regurgitation is present. There is no aortic valvular stenosis. Mitral Valve Anterior mitral valve leaflet is elongated and borderline prolapsed. Mitral valve leaflets open well. There is no mitral valve regurgitation noted. There is no mitral valve stenosis. Tricuspid Valve The tricuspid valve is normal in structure. There is no tricuspid valve regurgitation noted. Pulmonic Valve The pulmonary valve is normal in structure. There is trivial pulmonic valvular regurgitation. Great Vessels The aortic root is borderline dilated. IVC is not visualized. Pericardium There is no pericardial effusion. Other Information Quality : Adequate Conclusion The left ventricle is normal size. There is normal left ventricular wall thickness. Apical non-compaction. Echogenic myocardium in the interatrial septum and apical lateral mckeon. GLS -28%. No characteristic apical sparing pattern on strain map. LVEF is 65-70%. Indeterminate diastolic dysfunction. The aortic valve is normal in structure. Anterior mitral valve leaflet is elongated and borderline prolapsed. Mitral valve leaflets open well. There is no mitral valve regurgitation noted. There is no pericardial effusion.
== END 2024-10-28 19:00 | disposition home or self-care (01) ==
LOC: EDH 09:09 → EDHIP 14:07 → INTOOBSV 14:07 → 2DH 16:46
PROVIDERS: ADMIT Internal Medicine; ATTEND Internal Medicine
DX: I47.10 Supraventricular tachycardia, unspecified (principal); R79.89 Other specified abnormal findings of blood chemistry; R54 Age-related physical debility; N40.0 Benign prostatic hyperplasia without lower urinary tract symptoms; E11.9 Type 2 diabetes mellitus without complications; E85.4 Organ-limited amyloidosis; I43 Cardiomyopathy in diseases classified elsewhere; I48.0 Paroxysmal atrial fibrillation; R00.2 Palpitations; I11.9 Hypertensive heart disease without heart failure; E78.00 Pure hypercholesterolemia, unspecified; F41.9 Anxiety disorder, unspecified; K21.9 Gastro-esophageal reflux disease without esophagitis; G89.29 Other chronic pain; F32.A Depression, unspecified; Z79.899 Other long term (current) drug therapy; Z88.0 Allergy status to penicillin; Z88.5 Allergy status to narcotic agent; Z88.8 Allergy status to other drugs, medicaments and biological substances; Z90.49 Acquired absence of other specified parts of digestive tract
CPT/HCPCS: 96365; 99285; 82550 ×3; 80076; 83735 ×2; 84484 ×4; 80048; 83880; 85025 ×2; 85610; 85730; 82948 ×4; 86140; 36415 ×2; 71045; 70450; 93005; 84145; 80053; 81001; 93306; 93356; J3475; G0378 ×2

== ENCOUNTER 2025-06-27 10:34 | Emergency (ER) | payer OTHER, MEDICAID ==
[~2025-06-27] VITALS: Ht 180.3 cm; Wt 93.9 kg
[~2025-06-27 10:34] MED LIST changes: -ACET-66 PO; -BISA-72 PO; +DUTA0.5C37 PO; -GUAI600T50 PO; +LATA2.5D7 OU; -NYST100033 PO; -OMEP40CA21 PO; -ONDA-104 PO; +PANT40TA54 PO; -POLY500P30 PO; -PROP10TA10 PO; +ROSU5TAB51 PO; +TAFA61CA PO; -TAMS-1 PO; +TAMS-55 PO; +VERA120C2 PO
--- NOTE | 2025-06-27 10:42 | ERN ---
ED Note History of Present Illness Stated Complaint: CHEST PAIN Chief Complaint: Chest Pain Time Seen by MD: 10:39 Dictation: PATIENT IS A 74-YEAR-OLD MALE ARRIVING VIA EMS WITH COMPLAINTS OF CHEST TIGHTNESS AND TACHYCARDIA. NO BACK PAIN NO JAW PAIN NO ARM PAIN NO NAUSEA V OMITING. PATIENT HAS A HISTORY OF SVT, WHEN HE WAS SEEN BY EMS ON ARRIVAL HE HAD A HEART RATE IN THE 150 60S, WAS GIVEN ADENOSINE 6 MG RAPID IV PUSH. HE CONVERTED ACCORDING TO EMS TO A SINUS RHYTHM AND WAS BROUGHT IN FOR FURTHER EVALUATION AND TREATMENT. HE HAS NO PAIN AT THE PRESENT TIME TRACE EDEMA BILATERAL LOWER EXTREMITIES PATIENT OF Allergies: Coded Allergies: Penicillins (Verified Allergy, Unknown, 03/02/14) albuterol (Unverified Allergy, Unknown, 07/06/21) cefdinir (Unverified Allergy, Unknown, 07/06/21) codeine (Unverified Allergy, Unknown, 07/06/21) lisinopril (Unverified Allergy, Unknown, 07/06/21) tramadol (Unverified Allergy, Unknown, 07/06/21) Home Meds Active Scripts Verapamil HCl (Verapamil ER) 120 Mg Cap24h.pel, 1 CAP PO DAILY, #30 CAP 2 Refills Prov:BIENVENIDO BOGGS MD 10/28/24 Reported Medications Sertraline HCl (Sertraline HCl) 50 Mg Tablet, 1 TAB PO TID for 30 Days, #30 TAB 0 Refills 06/27/25 Fluticasone Propionate (Fluticasone Propionate) 50 Mcg/Actuation [place].susp, 2 SPRAY NS DAILY, #16 GM 0 Refills 06/27/25 Tafamidis (Vyndamax) 61 Mg Capsule, 61 MG PO DAILY, CAP 06/27/25 Azelastine/Fluticasone (Azelastin-Flutic 137-50Mcg Spr) 137 Mcg-50 Mcg/[place].pump, 1 SPRAY NS BID for 30 Days, #23 GM 0 Refills 06/27/25 Rosuvastatin Calcium (Rosuvastatin Calcium) 5 Mg Tablet, 1 TAB PO DAILY 10/27/24 Pantoprazole Sodium (Pantoprazole Sodium) 40 Mg Tablet.dr, 1 TAB PO DAILY 10/27/24 Tamsulosin HCl (Flomax) 0.4 Mg Cap.er.24h, 1 CAP PO HS 10/27/24 Dutasteride (Dutasteride) 0.5 Mg Capsule, 1 CAP PO DAILY 10/27/24 Clonazepam (Klonopin) 1 Mg Tablet, 1 MG PO TID, TAB 01/30/17 Latanoprost (Xalatan 0.005% Ophth Soln) 20 Drop/Ml Opsol, 1 DROP .AD HS, DROP 01/30/17 Discontinued Reported Medications Metformin HCl (Metformin HCl) 500 Mg Tablet, 1 TAB PO BID for 30 Days, #60 TAB 0 Refills 10/27/24 Tafamidis (Vyndamax) 61 Mg Capsule, 1 CAP PO DAILY 10/27/24 Latanoprost (Latanoprost) 0.005 % Drops, 1 DROP OU HS 10/27/24 Fluticasone Propionate (Fluticasone Propionate) 15.8 Ml [place].susp, 1 SPRAY NS DAILY 03/07/22 Sertraline HCl (Zoloft) 50 Mg Tablet, 50 MG PO BID, TAB 01/30/17 Dutasteride (Avodart) 0.5 Mg Cap, 0.5 MG PO HS, CAP 01/30/17 Past Medical History Past Medical History: GERD, High Cholesterol, Other Additional Past Medical Hx: SVT, P[place]IN[place]S Surgical History: Appendectomy, Cholecystectomy, Other Surgical History Other: LEFT ELBOW Social History: Negative, Lives with family, Other RN Note Reviewed/Agreed w/PFSH: Yes Review of System Dictation CONSTITUTIONAL: NEGATIVE EXCEPT FOR HPI HEAD/FACE: NEGATIVE EXCEPT FOR HPI EENT: NEGATIVE EXCEPT FOR HPI RESPIRATORY: NEGATIVE EXCEPT FOR HPI PALPITATIONS/SVT GASTROINTESTINAL/ABDOMINAL: NEGATIVE EXCEPT FOR HPI GENITOURINARY: NEGATIVE EXCEPT FOR HPI MUSCULOSKELETAL: NEGATIVE EXCEPT FOR HPI INTEGUMENTARY: NEGATIVE EXCEPT FOR HPI NEUROLOGICAL/PSYCH: NEGATIVE EXCEPT FOR HPI HEMATOLOGIC/LYMPHATIC: NEGATIVE EXCEPT FOR HPI ALL SYSTEMS NEGATIVE, EXCEPT NOTED ABOVE. 13 POINT REVIEW OF SYSTEMS ASSESSED AND ALL NEGATIVE EXCEPT FOR ABOVE. Initial Vital Sign VS Vital Signs Date Time Temp Pulse Resp B/P (MAP) Pulse Ox O2 Delivery O2 Flow Rate FiO2 06/27/25 10:35 98.1 86 18 116/77 98 Room Air 0 06/27/25 11:00 21 Physical Exam Dictation VITAL SIGNS REVIEWED GENERAL APPEARANCE: ALERT, ORIENTED X 3, NO ACUTE DISTRESS, WELL DEVELOPED, NOURISHED. NO COMPLAINTS OF PAIN AT THIS TIME. HEAD AND FACE: NON-TRAUMATIC. EYES: PERRL, PINK CONJUNCTIVAS, EYELID NO TRAUMA, ANTERIOR CHAMBER WITH ARCUS SENILIS. EARS: PINNAS INTACT AND NO SIGNS OF TRAUMA OR ERYTHEMA EAR CANALS CLEAR AND NO DISCHARGE TM NO ERYTHEMA NOSE: NO DISCHARGE, NO BLEEDING. OROPHARYNX: MOUTH NORMAL, TONGUE PINK, PHARYNX CLEAR,NO ERYTHEMA, TONSILS NO EXUDATES, NO ABSCESSES NOTED, MUCOUS MEMBRANE MOIST NECK: SUPPLE, NON-TENDER, NO THYROMEGALY, NO MASSES, NO JVD, NO BRUITS BREAST:DEFERRED CHEST:NO TENDERNESS, NO CREPITUS, NO PARADOXICAL MOVEMENT, NO RETRACTIONS LUNGS:CLEAR, WELL-VENTILATED, SYMMETRIC, NO RALES, NO WHEEZING, NO RHONCHI, NO STRIDOR, GOOD BREATH SOUNDS BILATERALLY HEART: REGULAR RATE, REGULAR RHYTHM, NO MURMUR, NO GALLOPS VASCULAR: TRACE PERIPHERAL EDEMA, ABDOMEN: SOFT, POSITIVE BOWEL SOUNDS, NONDISTENDED, NO GUARDING, NONTENDER, NO REBOUND, NO MASSES NO HEPATOMEGALY, NO SPLENOMEGALY, NO WINTERS'S SIGN, NO HERNIAS. RECTAL: DEFERRED GENITAL: DEFERRED NEUROLOGICAL: NORMAL SPEECH, MOTOR FUNCTION INTACT, SENSORY FUNCTION INTACT MUSCULOSKELETAL: NECK NONTENDER, FULL RANGE OF MOTION, BACK NONTENDER, FULL RANGE OF MOTION, EXTREMITIES: NONTENDER, FULL RANGE OF MOTION SKIN: COLOR PINK, DRY, NO TURGOR, NO RASH, NO LACERATIONS, NO ABRASIONS, NO CONTUSIONS. LYMPHATIC: DEFERRED Results (Laboratory/Radiology) Laboratory/Radiology Laboratory Tests Test 06/27/25 10:51 06/27/25 12:18 06/27/25 14:10 White Blood Count 6.8 K/uL (4.8-10.8) Red Blood Count 4.23 MIL/uL (4.50-6.20) L Hemoglobin 13.5 g/dL (14.0-18.0) L Hematocrit 41.2 % (42-54) L Mean Corpuscular Volume 97.4 fL (79-99) Mean Corpuscular Hemoglobin 31.9 pg (27.0-33.0) Mean Corpuscular Hemoglobin Concent 32.8 g/dL (32.0-36.0) Red Cell Distribution Width 13.9 % (11.0-15.5) Platelet Count 220 K/uL (130-400) Mean Platelet Volume 9.1 fL (7.5-10.5) Immature Granulocyte % (Auto) 0.3 % (0-1) Neutrophils (%) (Auto) 69.0 % (40.0-77.0) Lymphocytes (%) (Auto) 21.8 % (21.0-51.0) Monocytes (%) (Auto) 6.4 % (3.0-13.0) Eosinophils (%) (Auto) 1.9 % (0.0-8.0) Basophils (%) (Auto) 0.6 % (0.0-5.0) Neutrophils # (Auto) 4.7 K/uL (1.8-7.7) Lymphocytes # (Auto) 1.5 K/uL (1.0-4.8) Monocytes # (Auto) 0.4 K/uL (0.1-1.0) Eosinophils # (Auto) 0.13 K/uL (0.00-0.70) Basophils # (Auto) 0.04 K/uL (0.00-0.20) Absolute Immature Granulocyte (auto 0.02 K/uL (0-1) Nucleated Red Blood Cells 0.0 % (0.0-0.19) Sodium Level 143 mmol/L (136-145) Potassium Level 3.9 mmol/L (3.5-5.1) Chloride Level 104 mmol/L (101-111) Carbon Dioxide Level 31 mmol/L (21-32) Blood Urea Nitrogen 12 mg/dL (7-18) Creatinine 0.9 mg/dL (0.5-1.3) Glomerular Filtration Rate Calc 89 mL/min (>90) Random Glucose 102 mg/dL (70-105) Total Calcium 9.6 mg/dL (8.5-10.1) Magnesium Level 2.20 mg/dL (1.80-2.40) Troponin I High Sensitivity 7 ng/L (4-75) 10 ng/L (4-75) B-Type Natriuretic Peptide 19 pg/mL (0-100) Urine Color LIGHT-YELLOW (YELLOW) Urine Appearance CLEAR (CLEAR) Urine pH 7.5 (5.0-8.0) Urine Specific [place] 1.012 (1.001-1.031) Urine Protein NEGATIVE mg/dL (NEGATIVE) Urine Glucose (UA) NEGATIVE mg/dL (NEGATIVE) Urine Ketones NEGATIVE mg/dL (NEGATIVE) Urine Occult Blood NEGATIVE (NEGATIVE) Urine Nitrate NEGATIVE (NEGATIVE) Urine Bilirubin NEGATIVE mg/dL (NEGATIVE) Urine Urobilinogen 0.2 mg/dL (0.2-1.0) Urine Leukocyte Esterase NEGATIVE Bubba/uL Labs Reviewed?: Yes EKG Comment: 1033 1ST EKG NORMAL SINUS RHYTHM HEART RATE 86/AXIS NORMAL/ NO ECTOPY 2ND EKG 13 50 NORMAL SINUS RHYTHM HEART RATE 71/AXIS NORMAL/NO ECTOPY HIGH SENSITIVITY TROPONIN IS 10, HEART SCORE IS FOUR ED Course ED Course Orders Procedure Category Date Status Time B-Type Natriuretic LAB 06/27/25 Complete Peptide 10:40 Cbc With Differential LAB 06/27/25 Complete 10:40 Chest 1vw RAD 06/27/25 Resulted 10:40 12 Lead Ekg Tracing- EKG 06/27/25 Complete Technical 10:40 Magnesium LAB 06/27/25 Complete 10:40 Troponin I High LAB 06/27/25 Complete Sensitivity 10:40 Urinalysis Profile LAB 06/27/25 Complete 10:40 Basic Metabolic Panel LAB 06/27/25 Complete 10:40 12 Lead Ekg Tracing- EKG 06/27/25 Logged Technical 13:38 Troponin I High LAB 06/27/25 Complete Sensitivity 13:38 Vital Signs Date Time Temp Pulse Resp B/P (MAP) Pulse Ox O2 Delivery O2 Flow Rate FiO2 06/27/25 13:22 97.9 76 16 117/73 99 Room Air* 0 06/27/25 12:10 97.9 80 14 132/81 97 Room Air* 0 06/27/25 11:00 97.9 86 16 146/85 96 Room Air* 0 06/27/25 10:35 98.1 86 18 116/77 98 Room Air 0 1550/PATIENT IN NO ACUTE DISTRESS AT THIS TIME HE REMAINS IN A SINUS RHYTHM NO PAIN AT THIS TIME HE IS AWARE THAT HIS LABS WERE AND CARDIAC WORKUP IS NEGATIVE SVT HE HAS NOT BEEN REPLICATED. WE WILL DISCHARGE PATIENT HOME HEART Score Response (Comments) Value History: Low suspicion (0) 0 EKG: Normal 0 Age: > 65yrs (+2) 2 Risk Factors: 1-2 risk factors (+1) 1 Initial Troponin: Normal limit (0) 0 Total 3 Medical Decision Making [facility] MDM: DIFFERENTIAL DIAGNOSIS: ACS/AMI/ARRHYTHMIA/ELECTROLYTE IMBALANCE/DEHYDRATION/PNEUMONIA/BRONCHITIS RATIONALE: TESTS CONSIDERED AND ORDERED SECONDARY TO SHARED DECISION MAKING INCLUDE: EKG/LABS/RADIOLOGY PREVIOUS OUTSIDE RECORDS REVIEWED: OLD ER VISITS. RISK OF COMPLICATION AND/OR MORBIDITY OR MORTALITY OF PATIENT MANAGEMENT: NONE MEDICATIONS-PER MEDICATION RECONCILIATION NEED FOR HOSPITALIZATION: PATIENT DOES NOT MEET CRITERIA FOR HOSPITALIZATION. NO NEED FOR EMERGENCY MAJOR/MINOR SURGERY: NO THERE ARE NO SOCIAL CONCERNS WITH THIS PATIENT. PRESCRIPTION DRUG MANAGEMENT NONE PRESCRIPTIONS WILL INCLUDE SYMPTOMATIC CARE PATIENT'S PRIOR EXTERNAL MEDICAL RECORDS FROM OTHER ER VISITS WERE REVIEWED BY ME INDICATED. PRIOR TESTING AND RESULTS FROM PREVIOUS VISITS WERE REVIEWED. PRIOR TESTS WERE TAKEN INTO ACCOUNT WITH MEDICAL DECISION MAKING AND RESOURCE UTILIZATION, INDEPENDENT HISTORIAN/HISTORIANS WERE USED TO OBTAIN COMPLETE MEDICAL HISTORY. I INDEPENDENTLY INTERPRETED THE TEST THAT WERE PERFORMED, RESULTS WERE REVIEWED BY ME AND CONSIDERED FINDINGS ON RADIOLOGY IF ORDERED. MEDICAL MANAGEMENT AND EXAMINATION INTERPRETATION DISCUSSIONS WERE HAD BY ME WITH OTHER QUALIFIED HEALTHCARE PROFESSIONALS INDICATED FOR THE PATIENT'S CARE. DX & DISP Disposition: Discharge Departure Impression: Primary Impression: Palpitations Additional Impression: History of paroxysmal supraventricular tachycardia Condition: Stable Additional Instructions: FOLLOW-UP WITH PRIMARY CARE PROVIDER IN 1 TO 2 DAYS. TAKE MEDICATIONS DIRECTED HERE IN THE EMERGENCY ROOM. OKAY TO CONTINUE HOME MEDICATIONS UNLESS OTHERWISE DISCUSSED DURING YOUR VISIT IN THE EMERGENCY ROOM TODAY. RETURN TO YOUR NEAREST EMERGENCY ROOM IF SYMPTOMS WORSEN OR IF THERE IS NO IMPROVEMENT. CALL 911 IF YOU NEED IMMEDIATE ASSISTANCE. TAKE TYLENOL OR MOTRIN [id number] NEEDED AND IF NO CONTRAINDICATIONS ARE PRESENT. INCREASE ORAL HYDRATION. A WOUND CULTURE OR URINE CULTURE WAS ORDERED HERE IN THE EMERGENCY ROOM DEPARTMENT PLEASE FOLLOW-UP WITH PRIMARY CARE PROVIDER AND ADVISE THEM TO GET REPEAT PORTS FROM OUR FACILITY. IF YOU HAD ANY SCOT WRAP/SPLINTS THAT WERE APPLIED HERE, PLEASE DO NOT REMOVE THEM UNTIL YOU SEE YOUR PRIMARY CARE OR SPECIALTY. FOLLOW UP WITH YOUR PRIMARY CARE DOCTOR NEEDED. ACTIVITY AND DIET TOLERATED. Referrals: JOSEY RIZO MD (PCP) Time of Disposition: 15:54 I have reviewed the case, and I agree with, Diagnosis and Plan MICHOACANO EPPERSON NP Jun 27, 2025 10:42
[2025-06-27 11:09] LABS: IMMATURE GRANULOCYTE ABSOLUTE 0.02 K/uL (0-1); NUCLEATED RED BLOOD CELLS 0.0 % (0.0-0.19); PLATELET COUNT (AUTO) 220 K/uL (130-400); RED BLOOD CELL COUNT(AUTO) 4.23 MIL/uL (4.50-6.20); RED CELL DISTRIBUTION WIDTH 13.9 % (11.0-15.5); WHITE BLOOD COUNT (AUTO) 6.8 K/uL (4.8-10.8)
[2025-06-27 11:11] LABS: CREATININE 0.9 mg/dL (0.5-1.3); GLOMERULAR FILTR. RATE CALC 89.0 mL/min (>90); GLUCOSE,RANDOM 102.0 mg/dL (70-105); SODIUM SERUM 143.0 mmol/L (136-145); UREA NITROGEN, BLOOD 12.0 mg/dL (7-18)
--- NOTE | 2025-06-27 11:12 | EKG ---
[facility] Test Date: 2025-06-27 Test Time: 10:33:53 Pat Name: PJ CALDERON Department: ED Room: Gender: M Practice Lead: [id number] : 1950 Requested By: MICHOACANO EPPERSON Order Number: [id number] Reading MD: Sheri Jimenez Measurements Intervals [place] Rate: 86 P: 13 [place]: 165 QRS: -17 QRSD: 95 T: 51 QT: 379 QTc: 454 Interpretive Statements Sinus rhythm Compared to ECG 10/27/2024 09:34:27 No significant changes Electronically Signed On 06-30-2025 15:06:34 CDT by Sheri Jimenez Please click the below link to view image of tracing.
--- NOTE | 2025-06-27 12:21 | HMCIMG ---
EXAM: CR Chest, 1 View. CLINICAL HISTORY: CHEST PAIN COMPARISON: Radiograph dated October 27, 2024 FINDINGS: LUNGS: There is no mass, infiltrate, or acute pulmonary abnormality. Mild bibasilar atelectasis and/or parenchymal scarring. PLEURAL SPACES: No evidence of pleural effusion or pneumothorax. MEDIASTINUM: The cardiomediastinal silhouette is within normal limits. BONES: No aggressive appearing osseous lesion seen. IMPRESSION: 1. No acute cardiopulmonary findings. /[place]
[2025-06-27 12:26] LABS: APPEARANCE,URINE CLEAR (CLEAR); GLUCOSE, URINE (UA) NEGATIVE (NEGATIVE); LEUKOCYTE ESTERASE ,URINE NEGATIVE Leu/uL (NEGATIVE); NITRATE,URINE NEGATIVE (NEGATIVE); OCCULT BLOOD,URINE NEGATIVE (NEGATIVE)
[2025-06-27 12:30] LABS: ADD UA MICROSCOPIC NO
[2025-06-27] MEDS ORDERED: AZEL23SP2 NS (14:49)
[2025-06-27] MEDS ORDERED: SERT-439 PO (14:49)
[2025-06-27 15:57] VITALS: BP 131/75; PULSE 70; RESP 16; TEMP 97.9; O2SAT 98
--- NOTE | 2025-06-28 10:23 | EKG ---
[facility] Test Date: 2025-06-27 Test Time: 13:50:11 Pat Name: PJ CALDERON Department: ED Room: Gender: Crystal Inspector: [id number] : 1950 Requested By: MICHOACANO EPPERSON Order Number: [id number] Reading MD: Sheri Jimenez Measurements Intervals [place] Rate: 71 P: 17 [place]: 182 QRS: -19 QRSD: 98 T: 27 QT: 395 QTc: 430 Interpretive Statements Sinus rhythm Compared to ECG 06/27/2025 10:33:53 No significant changes Electronically Signed On 06-30-2025 15:06:42 CDT by Sheri Jimenez Please click the below link to view image of tracing.
== END 2025-06-27 16:26 | disposition home or self-care (01) ==
LOC: EDH 10:34
DX: R00.2 Palpitations (principal); E78.00 Pure hypercholesterolemia, unspecified; G20.A1 Parkinson's disease without dyskinesia, without mention of fluctuations; Z79.84 Long term (current) use of oral hypoglycemic drugs; Z79.899 Other long term (current) drug therapy; Z88.0 Allergy status to penicillin; Z88.1 Allergy status to other antibiotic agents; Z88.5 Allergy status to narcotic agent; Z88.8 Allergy status to other drugs, medicaments and biological substances; Z90.49 Acquired absence of other specified parts of digestive tract
CPT/HCPCS: 36415; 71045; 80048; 81003; 83735; 83880; 84484; 85025; 93005; 99285